=== PATIENT | female | born 1940 | race Caucasian/White ===

== ENCOUNTER 2016-11-16 21:14 | Emergency (ER) | payer MEDICARE, OTHER ==
[2016-11-16] MEDS ORDERED: NORMAL SALINE 1000 ML 1,000 ML IV ONE (21:28)
--- NOTE | 2016-11-16 21:28 | ER Document Report ---
ED Medical Screen (RME) - General Chief Complaint: High Blood Sugar Stated Complaint: HIGH BLOOD SUGAR Time seen by provider: 21:23 Mode of Arrival: Ambulatory Information source: Patient Notes: 76-year-old female presents to ED for elevated blood sugar. She states at home her blood sugar was over 600 and would only read high. She is a type II diabetic and has had 26 units of Humalog insulin since 1838. In the RME her blood sugar was 458 and 452. Yesterday her blood sugar was so low that she was disoriented. Patient states she went to Dr. Herrera's office for the last 2 hours which is where she had this 26 units of insulin. He sent her to the emergency room to monitor her blood sugar as she had such a low blood sugar yesterday. I have greeted and performed a rapid initial assessment of this patient. A comprehensive ED assessment and evaluation of the patient, analysis of test results and completion of medical decision making process will be conducted by an additional ED providers. TRAVEL OUTSIDE OF THE [place] IN LAST 30 DAYS: No Past Medical History - Past Medical History Cardiac Medical History: Reports: Hx Atrial Fibrillation Endocrine Medical History: Reports: Hx Diabetes Mellitus Type 1 Past Surgical History: Reports: Hx Hysterectomy - Immunizations Hx Diphtheria, Pertussis, Tetanus Vaccination: Yes
[2016-11-16 22:12] LABS: VENOUS BLOOD BASE EXCESS -1.7 mmol/L; VENOUS BLOOD HCO3 24.4 mmol/L (20-32); VENOUS BLOOD PCO2 47.8 mmHg (35-63); VENOUS BLOOD PH 7.33 (7.30-7.42)
[2016-11-16 22:15] LABS: ABSOLUTE LYMPHOCYTES (AUTO) 1.5 10^3/uL (0.5-4.7); ABSOLUTE MONOCYTES (AUTO) 0.4 10^3/uL (0.1-1.4); ABSOLUTE NEUT (AUTO) 6.5 10^3/uL (1.7-8.2); BASOPHILS % (AUTO) 0.3 % (0-2); EOSINOPHILS % (AUTO) 0.2 % (0-6); HEMATOCRIT 33.3 % (36.0-47.0); HEMOGLOBIN 10.9 g/dL (12.0-15.5); HGB HCT DIFFERENCE -0.6; LYMPHOCYTES % (AUTO) 17.8 % (13-45); MEAN CORPUSCULAR HEMOGLOBIN 29.7 pg (27.0-33.4); MEAN CORPUSCULAR HGB CONC 32.9 g/dL (32.0-36.0); MEAN CORPUSCULAR VOLUME 90 fl (80-97); MONOCYTES % (AUTO) 4.5 % (3-13); RED BLOOD COUNT 3.69 10^6/uL (3.72-5.28); RED CELL DISTRIBUTION WIDTH 13.4 % (11.5-14.0); SEGMENTED NEUTROPHILS % (AUTO) 77.2 % (42-78); WHITE BLOOD COUNT 8.4 10^3/uL (4.0-10.5)
[2016-11-16 22:31] LABS: ALANINE AMINOTRANSFERASE 35 U/L (9-52); ALBUMIN 4.1 g/dL (3.5-5.0); ALKALINE PHOSPHATASE 84 U/L (38-126); ANION GAP 15 (5-19); ASPARTATE AMINO TRANSFERASE 28 U/L (14-36); BILIRUBIN,TOTAL 0.5 mg/dL (0.2-1.3); BLOOD UREA NITROGEN 38 mg/dL (7-20); CALCIUM 9.5 mg/dL (8.4-10.2); CARBON DIOXIDE 24 mmol/L (22-30); CHLORIDE 96 mmol/L (98-107); CREATININE RESULT 1.55 mg/dL (0.52-1.25); GLUCOSE 334 mg/dL (75-110); POTASSIUM 4.1 mmol/L (3.6-5.0); SODIUM 134.8 mmol/L (137-145); TOTAL PROTEIN 7.9 g/dL (6.3-8.2)
[2016-11-16 23:20] LABS: APPEARANCE,URINE CLEAR; BILIRUBIN,URINE NEGATIVE (NEGATIVE); GLUCOSE, URINE >=500 mg/dL (NEGATIVE); KETONES,URINE NEGATIVE (NEGATIVE); LEUKOCYTE ESTERASE,URINE NEGATIVE (NEGATIVE); NITRITE,URINE NEGATIVE (NEGATIVE); PROTEIN,URINE NEGATIVE (NEGATIVE); UROBILINOGEN,URINE NEGATIVE mg/dL (<2.0)
--- NOTE | 2016-11-16 23:45 | ER Document Report ---
ED Blood Sugar Problem - General Chief Complaint: High Blood Sugar Stated Complaint: HIGH BLOOD SUGAR Time seen by provider: 23:41 Mode of Arrival: Ambulatory Information source: Patient, Relative TRAVEL OUTSIDE OF THE [place] IN LAST 30 DAYS: No - HPI Patient complains to provider of: elevated blood sugar Onset: This afternoon Onset/Duration: Sudden Quality of pain: No pain Associated symptoms: Increased thirst, Frequent urination Similar symptoms previously: No Recently seen / treated by doctor: Yes Notes: Patient is a 76-year-old female presenting to the emergency room from primary care provider's office for increased blood sugar, patient was seen by her primary care provider yesterday and diagnosed with an upper respiratory infection, was given a dose of steroids, today she noticed her blood sugar to be over 600, she does report some increased thirst and urination but no other symptoms, denies any nausea, vomiting or diarrhea, no fever today although she' s had a fever related to the upper respiratory infection over the past few days , no pain or burning with urination, no history of similar symptoms previously, she did take 1 dose of prednisone in the morning and one dose at 3 PM today, but was advised to discontinue prednisone use by her primary care provider, she last ate half a sandwich around 7 PM - Related Data Allergies/Adverse Reactions: baclofen Allergy (Verified 11/16/16 21:29) levofloxacin [From Levaquin] Allergy (Verified 11/16/16 21:29) Sulfa (Sulfonamide Antibiotics) Allergy (Verified 11/16/16 21:29) sulfamethoxazole [From Bactrim] Allergy (Verified 11/16/16 21:29) trimethoprim [From Bactrim] Allergy (Verified 11/16/16 21:29) Past Medical History - General Information source: Patient - Social History Smoking Status: Never Smoker Chew tobacco use (# tins/day): No Frequency of alcohol use: None Drug Abuse: None Family History: Reviewed & Not Pertinent Patient has suicidal ideation: No Patient has homicidal ideation: No - Past Medical History Cardiac Medical History: Reports: Hx Atrial Fibrillation Endocrine Medical History: Reports: Hx Diabetes Mellitus Type 1 Renal/ Medical History: Denies: Hx Peritoneal Dialysis Past Surgical History: Reports: Hx Hysterectomy - Immunizations Hx Diphtheria, Pertussis, Tetanus Vaccination: Yes Review of Systems - Review of Systems Constitutional: No symptoms reported EENT: No symptoms reported Cardiovascular: No symptoms reported Respiratory: No symptoms reported Gastrointestinal: No symptoms reported Genitourinary: Frequency Female Genitourinary: No symptoms reported Musculoskeletal: No symptoms reported Skin: No symptoms reported Hematologic/Lymphatic: No symptoms reported Neurological/Psychological: No symptoms reported -: Yes All other systems reviewed and negative Physical Exam - Vital signs Vitals: Temp Pulse Resp BP Pulse Ox 98 F 77 16 173/66 H 100 11/16/16 21:19 11/16/16 21:19 11/16/16 21:19 11/16/16 21:19 11/16/16 21:19 Interpretation: Hypertensive - General General appearance: Appears well, Alert - HEENT Head: Normocephalic, Atraumatic Eyes: Normal Pupils: PERRL - Respiratory Respiratory status: No respiratory distress Chest status: Nontender Breath sounds: Normal Chest palpation: Normal - Cardiovascular Rhythm: Regular Heart sounds: Normal auscultation Murmur: No - Abdominal Inspection: Normal Distension: No distension Bowel sounds: Normal Tenderness: Nontender Organomegaly: No organomegaly - Back Back: Normal, Nontender - Extremities General upper extremity: Normal inspection, Nontender, Normal color, Normal ROM , Normal temperature General lower extremity: Normal inspection, Nontender, Normal color, Normal ROM , Normal temperature, Normal weight bearing. No: Meet's sign - Neurological Neuro grossly intact: Yes Cognition: Normal Orientation: AAOx4 Dunlevy Coma Scale Eye Opening: Spontaneous Dunlevy Coma Scale Verbal: Oriented Gretta Coma Scale Motor: Obeys Commands Dunlevy Coma Scale Total: 15 Speech: Normal Motor strength normal: LUE, RUE, LLE, RLE Sensory: Normal - Psychological Associated symptoms: Normal affect, Normal mood - Skin Skin Temperature: Warm Skin Moisture: Dry Skin Color: Normal Course - Re-evaluation Re-evalutation: 11/17/16 01:39 Patient's blood glucose has been stable since being in the emergency room, was given a small pack of tina crackers prior to discharge to ensure that her sugar would not drop any lower throughout the middle the night, advised to discontinue taking prednisone, follow up with her primary care provider in the next 1-2 days or return if symptoms worsen, patient acknowledges understanding and agreement with this plan - Vital Signs Vital signs: Temp Pulse Resp BP Pulse Ox 98.4 F 77 13 133/55 H 97 11/17/16 01:34 11/16/16 21:19 11/17/16 01:01 11/17/16 01:00 11/17/16 01:01 - Laboratory Result Diagrams: 11/16/16 21:57 11/16/16 21:57 Laboratory results interpreted by me: 11/16/16 11/16/16 11/16/16 21:57 21:57 22:50 RBC 3.69 L Hgb 10.9 L Hct 33.3 L Sodium 134.8 L Chloride 96 L BUN 38 H Creatinine 1.55 H Est GFR ( Amer) 39 L Est GFR (Non-Af Amer) 33 L Glucose 334 H POC Glucose Urine Glucose (UA) >=500 H 11/16/16 11/17/16 11/17/16 23:29 00:29 01:21 RBC Hgb Hct Sodium Chloride BUN Creatinine Est GFR ( Amer) Est GFR (Non-Af Amer) Glucose POC Glucose 186 H 124 H 117 H Urine Glucose (UA) Discharge - Discharge Clinical Impression: Hyperglycemia Condition: Stable Disposition: HOME, SELF-CARE Instructions: Hyperglycemia ([facility]) Additional Instructions: Follow up with your primary care provider in one to 2 days. Return to the emergency room immediately if symptoms worsen or any additional concerns. Stop taking prednisone. Referrals: ORN RAMOS MD [Primary Care Provider] - Follow up as needed
[2016-11-17 01:27] VITALS: BP 133/55
== END 2016-11-17 01:43 | disposition home or self-care (01) ==
LOC: ER 21:14
DX: E10.65 Type 1 diabetes mellitus with hyperglycemia (principal); R35.0 Frequency of micturition; I48.91 Unspecified atrial fibrillation; Z90.710 Acquired absence of both cervix and uterus; Z88.2 Allergy status to sulfonamides; Z88.3 Allergy status to other anti-infective agents
CPT/HCPCS: 99283; 96360; 36415; 82962; 85025; 80053; 81001; 82803; J7030

== ENCOUNTER 2016-11-26 06:34 | Inpatient (IN) | payer MEDICARE, OTHER ==
[2016-11-26] MEDS ORDERED: ACETAMINOPHEN 325 MG TABLET PO ONE (06:39)
--- NOTE | 2016-11-26 06:52 | ER Document Report ---
ED Fall - General Mode of Arrival: Medic Information source: Patient TRAVEL OUTSIDE OF THE [place] IN LAST 30 DAYS: No - HPI Patient complains to provider of: Falling with multiple abrasions and right buttock pain Occurred: Just prior to arrival Where: Home Context: Fell from standing Associated symptoms: Other - see above Location of injury/pain: Other - see above <SYD KOVACS - Last Filed: 11/26/16 09:47> <TYRA COX - Last Filed: 11/26/16 09:51> - General Stated Complaint: FALL, RIGHT BUTTOCKS PAIN Notes: 76 year old female with history of atrial fibrillation (with pacemaker), diabetes (insulin pump in place), and left knee replacement presents to the ED via EMS after falling on her buttock and hitting her head while in the bathroom just prior to arrival. Patient states that she is having some right buttock pain , but denies any other pain. Patient complains of an abrasion to the right elbow and knee. Patient also states that she had a contusion to the posterior head which has "gone down" since arriving to the ED. Patient's primary care provider is Dr. Herrera. (SYD KOVACS) - Related data Allergies/Adverse Reactions: baclofen Allergy (Verified 11/16/16 21:29) levofloxacin [From Levaquin] Allergy (Verified 11/16/16 21:29) Sulfa (Sulfonamide Antibiotics) Allergy (Verified 11/16/16 21:29) sulfamethoxazole [From Bactrim] Allergy (Verified 11/16/16 21:29) trimethoprim [From Bactrim] Allergy (Verified 11/16/16 21:29) Past Medical History - General Information source: Patient - Social History Smoking Status: Never Smoker Family History: Reviewed & Not Pertinent - Past Medical History Cardiac Medical History: Reports: Hx Atrial Fibrillation, Hx Hypercholesterolemia Endocrine Medical History: Reports: Hx Diabetes Mellitus Type 1 Renal/ Medical History: Denies: Hx Peritoneal Dialysis Past Surgical History: Reports: Hx Hysterectomy, Hx Orthopedic Surgery - Left knee replacement - Immunizations Hx Diphtheria, Pertussis, Tetanus Vaccination: Yes <SYD KOVACS - Last Filed: 11/26/16 09:47> Review of Systems - Review of Systems Constitutional: No symptoms reported EENT: See HPI, Other - contusion to the posterior head Cardiovascular: No symptoms reported Respiratory: No symptoms reported Gastrointestinal: No symptoms reported Genitourinary: No symptoms reported Female Genitourinary: No symptoms reported Musculoskeletal: See HPI, Other - right buttock pain Skin: See HPI, Other - abrasion to the right elbow and knee Hematologic/Lymphatic: No symptoms reported Neurological/Psychological: No symptoms reported. denies: Lost consciousness -: Yes All other systems reviewed and negative <SYD KOVACS - Last Filed: 11/26/16 09:47> Physical Exam - General General appearance: Alert In distress: None - HEENT Head: Normocephalic, Atraumatic Eyes: Normal Extraocular movements intact: Yes Pupils: PERRL - Respiratory Respiratory status: No respiratory distress Breath sounds: Normal - Cardiovascular Rhythm: Regular Heart sounds: Normal auscultation - Abdominal Inspection: Normal - Back Back: Normal, Nontender - Extremities General upper extremity: Normal ROM. No: Normal inspection - see elbow and knee exam below General lower extremity: No: Normal inspection - see hip exam below Elbow: Abrasion. No: Normal Hip: Tender - right lower extremity is externally rotated with some tenderness at the right hip. No: Normal Knee: Abrasion. No: Normal - Neurological Neuro grossly intact: Yes - Psychological Associated symptoms: Normal affect, Normal mood - Skin Skin Temperature: Warm Skin Moisture: Dry Skin Color: Normal Skin irregularity: other - see extremity exam above <SYD KOVACS - Last Filed: 11/26/16 09:47> - Extremities Elbow: Other - Sonata 5 cm skin tear to the right forearm. It was approximated and bandaged by the PCT.. No: Abrasion Knee: Abrasion - There was a minor 1 cm skin tear avulsion over the right anterior lateral patellar region. <TYRA COX - Last Filed: 11/26/16 09:51> - Vital signs Vitals: Temp Pulse Resp BP Pulse Ox 97.2 F 74 17 164/78 H 100 11/26/16 06:34 11/26/16 06:34 11/26/16 06:34 11/26/16 06:34 11/26/16 06:34 (TYRA COX) Course - Laboratory Result Diagrams: 11/26/16 07:40 11/26/16 07:40 <SYD KOVACS - Last Filed: 11/26/16 09:47> - Laboratory Result Diagrams: 11/26/16 07:40 11/26/16 07:40 - Diagnostic Test Radiology reviewed: Image reviewed, Reports reviewed - CT head shows normal brain. Chest x-ray is unremarkable. Right hip shows subtrochanteric fracture with angulation and displacement. - EKG Interpretation by Me EKG shows normal: [place], Intervals, QRS Complexes, ST-T Waves Rate: Normal - 70 Rhythm: Other - Atrial paced complexes Heart block present: 1st Degree - Consults Dr. Berger Time consulted: 09:47 Consulted provider: will come to ER <TYRA COX - Last Filed: 11/26/16 09:51> - Re-evaluation Re-evalutation: 11/26/16 07:39 The patient and family request transfer to [facility] for her orthopedic surgeon and internal medicine doctors are. There are initially unwilling to turn off the insulin pump at this time. 11/26/16 09:40 The patient's orthopedic surgeon would not be available this week and the alternative he proposed the patient is unwilling to accept. The patient's family eventually agreed to stay at this facility for treatment. (TYRA COX) - Vital Signs Vital signs: Temp Pulse Resp BP Pulse Ox 97.2 F 74 18 137/57 H 99 11/26/16 06:34 11/26/16 06:34 11/26/16 09:01 11/26/16 09:01 11/26/16 09:01 (TYRA COX) - Laboratory Laboratory results interpreted by me: 11/26/16 11/26/16 11/26/16 07:40 07:40 07:50 WBC 15.5 H RBC 3.49 L Hgb 10.3 L Hct 31.1 L Seg Neutrophils % 78.6 H Absolute Neutrophils 12.2 H BUN 29 H Est GFR ( Amer) 58 L Est GFR (Non-Af Amer) 48 L Glucose 184 H Albumin 3.4 L Urine Glucose (UA) 50 H Discharge <SYD KOVACS - Last Filed: 11/26/16 09:47> - Discharge Admitting Provider: Hospitalist Unit Admitted: Medical Floor <TYRA COX - Last Filed: 11/26/16 09:51> - Discharge Clinical Impression: Diabetes mellitus, insulin dependent (IDDM), controlled Hip fracture Qualifiers: Encounter type: initial encounter Fracture type: closed Laterality: right Qualified Code(s): S72.001A - Fracture of unspecified part of neck of right femur, initial encounter for closed fracture Skin tear of right forearm without complication Qualifiers: Encounter type: initial encounter Qualified Code(s): S51.811A - Laceration without foreign body of right forearm, initial encounter Condition: Stable Disposition: ADMITTED INPATIENT Scribe Attestation: 11/26/16 09:50 I personally performed the services described in the documentation, reviewed and edited the documentation which was dictated to the scribe in my presence, and it accurately records my words and actions. (TYRA COX) Scribe Documentation - Scribe Written by Sintia:: Sintia Heard, 11/26/2016 [id number] acting as scribe for :: Kei <SYD KOVACS - Last Filed: 11/26/16 09:47>
[2016-11-26] MEDS ORDERED: NORMAL SALINE 1000 ML 1,000 ML IV ONE (07:18)
[2016-11-26 07:53] LABS: ABSOLUTE BASOPHILS # (AUTO) 0.1 10^3/uL (0.0-0.2); ABSOLUTE EOSINOPHILS # (AUTO) 0.1 10^3/uL (0.0-0.6); ABSOLUTE LYMPHOCYTES (AUTO) 2.3 10^3/uL (0.5-4.7); ABSOLUTE MONOCYTES (AUTO) 0.8 10^3/uL (0.1-1.4); ABSOLUTE NEUT (AUTO) 12.2 10^3/uL (1.7-8.2); BASOPHILS % (AUTO) 0.5 % (0-2); EOSINOPHILS % (AUTO) 0.9 % (0-6); HEMATOCRIT 31.1 % (36.0-47.0); HEMOGLOBIN 10.3 g/dL (12.0-15.5); HGB HCT DIFFERENCE -0.2; LYMPHOCYTES % (AUTO) 14.9 % (13-45); MEAN CORPUSCULAR HEMOGLOBIN 29.4 pg (27.0-33.4); MEAN CORPUSCULAR VOLUME 89 fl (80-97); MONOCYTES % (AUTO) 5.1 % (3-13); RED BLOOD COUNT 3.49 10^6/uL (3.72-5.28); RED CELL DISTRIBUTION WIDTH 13.6 % (11.5-14.0); SEGMENTED NEUTROPHILS % (AUTO) 78.6 % (42-78); WHITE BLOOD COUNT 15.5 10^3/uL (4.0-10.5)
--- NOTE | 2016-11-26 08:14 | EKG REPORT ---
SEVERITY:- ABNORMAL ECG - ATRIAL-PACED COMPLEXES FIRST DEGREE AV BLOCK : Confirmed by: Brayan Peralta MD 26-Nov-2016 08:13:41
[2016-11-26 08:16] LABS: ALANINE AMINOTRANSFERASE 23 U/L (9-52); ALBUMIN 3.4 g/dL (3.5-5.0); ALKALINE PHOSPHATASE 70 U/L (38-126); ANION GAP 10 (5-19); ASPARTATE AMINO TRANSFERASE 20 U/L (14-36); BILIRUBIN,TOTAL 0.5 mg/dL (0.2-1.3); BLOOD UREA NITROGEN 29 mg/dL (7-20); CALCIUM 9.1 mg/dL (8.4-10.2); CARBON DIOXIDE 27 mmol/L (22-30); CHLORIDE 101 mmol/L (98-107); CREATINE KINASE 69 U/L (30-135); CREATININE RESULT 1.11 mg/dL (0.52-1.25); GLUCOSE 184 mg/dL (75-110); MAGNESIUM 1.9 mg/dL (1.6-2.3); POTASSIUM 4.5 mmol/L (3.6-5.0); TOTAL PROTEIN 6.9 g/dL (6.3-8.2)
[2016-11-26 08:16] LABS: APPEARANCE,URINE CLEAR; BILIRUBIN,URINE NEGATIVE (NEGATIVE); GLUCOSE, URINE 50 mg/dL (NEGATIVE); KETONES,URINE NEGATIVE (NEGATIVE); LEUKOCYTE ESTERASE,URINE NEGATIVE (NEGATIVE); NITRITE,URINE NEGATIVE (NEGATIVE); PROTEIN,URINE NEGATIVE (NEGATIVE); URINE SPECIFIC GRAVITY 1.011; UROBILINOGEN,URINE NEGATIVE mg/dL (<2.0)
[2016-11-26 08:27] LABS: CREATINE KINASE MB 1.13 ng/mL (<4.55); TROPONIN I < 0.012 ng/mL
[2016-11-26] MEDS ORDERED: ACETAMINOPHEN 325 MG TABLET PO PRN ×2 (10:24→14:24)
[2016-11-26] MEDS ORDERED: DOCUSATE SODIUM 100 MG CAPSULE PO PRN (10:24)
[2016-11-26] MEDS ORDERED: ONDANSETRON HCL INJ/PF 4 MG/2 ML SDV IV PRN (10:24)
[2016-11-26] MEDS ORDERED: MORPHINE SULFATE 10 MG/ML INJ IV PRN (10:32)
[2016-11-26] MEDS ORDERED: NORMAL SALINE 1000 ML 1,000 ML IV PRN (10:35)
[2016-11-26] MEDS ORDERED: GLUCAGON,HUMAN RECOMB 1 MG INJ IM PRN (10:36)
[2016-11-26] MEDS ORDERED: DEXTROSE 40% GEL 15 GM TUBE PO PRN ×2 (10:36)
[2016-11-26] MEDS ORDERED: DEXTROSE 50%-WATER 25 GM/50 ML DISP.SYRIN IV PRN ×2 (10:36)
[2016-11-26] MEDS ORDERED: SOTALOL HCL 80 MG TABLET PO ONE ×2 (11:30→13:00)
[2016-11-26] MEDS: TRAMADOL HCL 50 MG TABLET PO PRN ×2 (12:30→19:04)
--- NOTE | 2016-11-26 13:05 | PDOC CONSULTATION ---
History of Present Illness Admission Date/PCP: 11/26/16 10:24 RON RAMOS Patient complains of: Right Hip History of Present Illness: 76-year-old female who is a community ambulator and lives at home independently inadvertently sustained a fall onto her right hip. Patient is on the exact mechanism of her fall but had notable deformity and increased pain with unable to weight-bear. She subsequently for herself to the phone to obtain help. She was brought by EMS to the emergency room. Patient states pain is 5/5 with motion. Denies numbness or tingling. Of note patient is status post left total knee arthroplasty in [place] July 2016. Past Medical History Cardiac Medical History: Reports: Atrial Fibrillation, Hyperlipidema Endocrine Medical History: Reports: Diabetes Mellitus Type 1 Past Surgical History Past Surgical History: Reports: Hysterectomy, Orthopedic Surgery - Left knee replacement Social History Smoking Status: Never Smoker - Advance Directive Resuscitation Status: Do Not Resuscitate Family History Family History: Reviewed & Not Pertinent Parental Family History Reviewed: No Children Family History Reviewed: No Sibling(s) Family History Reviewed.: No Medication/Allergy Allergies/Adverse Reactions: baclofen Allergy (Verified 11/16/16 21:29) levofloxacin [From Levaquin] Allergy (Verified 11/16/16 21:29) Sulfa (Sulfonamide Antibiotics) Allergy (Verified 11/16/16 21:29) sulfamethoxazole [From Bactrim] Allergy (Verified 11/16/16 21:29) trimethoprim [From Bactrim] Allergy (Verified 11/16/16 21:29) Review of Systems Review of Systems: Patient notes head trauma but denies headache dizziness or loss of consciousness. Denies diplopia or blurring of vision. Constitutional: ABSENT: chills, fever(s), headache(s), weight gain, weight loss Eyes: ABSENT: visual disturbances Ears: ABSENT: hearing changes Cardiovascular: ABSENT: chest pain, dyspnea on exertion, edema, orthropnea, palpitations Respiratory: ABSENT: cough, hemoptysis Gastrointestinal: ABSENT: abdominal pain, constipation, diarrhea, hematemesis, hematochezia, nausea, vomiting Genitourinary: ABSENT: dysuria, hematuria Musculoskeletal: PRESENT: as per HPI Integumentary: ABSENT: rash, wounds Neurological: ABSENT: abnormal gait, abnormal speech, confusion, dizziness, focal weakness, syncope Psychiatric: ABSENT: anxiety, depression, homidical ideation, suicidal ideation Endocrine: ABSENT: cold intolerance, heat intolerance, menstrual abnormalities, polydipsia, polyuria Hematologic/Lymphatic: ABSENT: easy bleeding, easy bruising, lymphadenopathy Physical Exam Vital Signs: Temp Pulse Resp BP Pulse Ox 97.9 F 70 16 122/61 100 11/26/16 12:26 11/26/16 12:26 11/26/16 12:26 11/26/16 12:26 11/26/16 12:26 General appearance: PRESENT: no acute distress, well-developed, well-nourished Head exam: PRESENT: atraumatic, normocephalic Eye exam: PRESENT: conjunctiva pink, EOMI, PERRLA. ABSENT: scleral icterus Ear exam: PRESENT: normal external ear exam Mouth exam: PRESENT: moist, tongue midline Neck exam: PRESENT: full ROM. ABSENT: carotid bruit, JVD, lymphadenopathy, thyromegaly Respiratory exam: PRESENT: unlabored Cardiovascular exam: PRESENT: RRR. ABSENT: diastolic murmur, rubs, systolic murmur Pulses: PRESENT: normal dorsalis pedis pul, +2 pedal pulses bilateral Vascular exam: PRESENT: normal capillary refill GI/Abdominal exam: PRESENT: normal bowel sounds, soft. ABSENT: distended, guarding, mass, organolmegaly, rebound, tenderness Rectal exam: PRESENT: deferred Musculoskeletal exam: PRESENT: other - Right Hip: Short, ER. No pain w/ log roll. Intact PF/DF. No sensory deficits. No calf tenderness. Small abrasion along the anterior aspect of the right knee. Skin tear of the right elbow dressed. Neurological exam: PRESENT: alert, awake, oriented to person, oriented to place , oriented to time, oriented to situation, CN II-XII grossly intact. ABSENT: motor sensory deficit Psychiatric exam: PRESENT: appropriate affect, normal mood. ABSENT: homicidal ideation, suicidal ideation Skin exam: PRESENT: dry, intact, warm. ABSENT: cyanosis, rash Results Impressions: Chest X-Ray 11/26/16 06:46 IMPRESSION: Nothing acute. Transvenous pacer noted. Head CT 11/26/16 06:46 IMPRESSION: NORMAL BRAIN CT WITHOUT CONTRAST. Hip/Pelvis X-Ray 11/26/16 06:46 IMPRESSION: Subtrochanteric fracture right hip. Assessment & Plan - Diagnosis (1) Fracture, intertrochanteric, right femur Qualifiers: Encounter type: initial encounter Fracture type: closed Qualified Code(s): S72.141A - Displaced intertrochanteric fracture of right femur, initial encounter for closed fracture Is this a current diagnosis for this admission?: YesPlan: I have reviewed patient's radiographs and findings with the family and discussed treatment options including operative versus nonoperative intervention. I have recommended proceeding with operative intervention which includes a right hip cephalo-medullary nail risks and benefits have been explained to the patient and family verbalized understanding and consented for the procedure. Risks include anesthetic complications, excessive bleeding, infection, injury to surrounding nerves, vessels and tendons, bruising, healing difficulties, scar formation, posttraumatic arthritis and any unforseen complication.
[2016-11-26] MEDS: HEPARIN SOD (PORCINE) 5,000 UNIT/ML 1 ML SYRINGE SUBCUT SCH ×2 (14:41→21:23)
[2016-11-26] MEDS: SOTALOL HCL 80 MG TABLET PO SCH (22:14)
--- NOTE | 2016-11-27 04:31 | PDOC H&P ---
History of Present Illness Admission Date/PCP: RON RAMOS History of Present Illness: TY JAMIL is a 76 year old female history of atrial fibrillation with pacemaker, diabetes insulin pump in place, and left knee replacement presents to the ED via EMS after trip and falling with subsequent hip fracture. Patient denied any antecedent illness, loss of consciousness, loss of bowel or bladder function, palpitations, chest pain. Patient had been diagnosed recently with pneumonia and was on doxycycline and Keflex, but repeat chest x-ray in the emergency department does not reveal this. Patient does complain of some right hip pain. Past Medical History Past Medical History: A. fib, [place] in October 2013, pacemaker, insulin-dependent diabetes mellitus, hyperlipidemia Cardiac Medical History: Reports: Atrial Fibrillation, Hyperlipidema Endocrine Medical History: Reports: Diabetes Mellitus Type 1 Past Surgical History Past Surgical History: Reports: Hysterectomy, Orthopedic Surgery - Left knee replacement Social History Smoking Status: Never Smoker Frequency of Alcohol Use: None Hx Recreational Drug Use: No Hx Prescription Drug Abuse: No - Advance Directive Resuscitation Status: Do Not Resuscitate Surrogate healthcare decision maker:: Daughter Family History Family History: DM Parental Family History Reviewed: Yes Children Family History Reviewed: Yes Sibling(s) Family History Reviewed.: Yes Medication/Allergy Home Medications: Atorvastatin Calcium [Lipitor 10 mg Tablet] 10 mg PO QHS 11/26/16 Cephalexin [Cephalexin 250 MG Tablet] 250 mg PO TID 11/26/16 Doxycycline Hyclate [Vibramycin 100 mg Tablet] 100 mg PO BID 11/26/16 Escitalopram Oxalate [Lexapro] 5 mg PO DAILY 11/26/16 Sotalol HCl [Sotalol] 40 mg PO Q12 11/26/16 Allergies/Adverse Reactions: baclofen Allergy (Verified 11/16/16 21:29) levofloxacin [From Levaquin] Allergy (Verified 11/16/16 21:29) Sulfa (Sulfonamide Antibiotics) Allergy (Verified 11/16/16 21:29) sulfamethoxazole [From Bactrim] Allergy (Verified 11/16/16 21:29) trimethoprim [From Bactrim] Allergy (Verified 11/16/16 21:29) Review of Systems Constitutional: PRESENT: as per HPI. ABSENT: chills, fever(s), headache(s), weight gain, weight loss Eyes: ABSENT: visual disturbances Ears: ABSENT: hearing changes Cardiovascular: ABSENT: chest pain, dyspnea on exertion, edema, orthropnea, palpitations Respiratory: ABSENT: cough, hemoptysis Gastrointestinal: ABSENT: abdominal pain, constipation, diarrhea, hematemesis, hematochezia, nausea, vomiting Genitourinary: ABSENT: dysuria, hematuria Musculoskeletal: PRESENT: as per HPI, other - Right hip pain Integumentary: ABSENT: rash, wounds Neurological: ABSENT: abnormal gait, abnormal speech, confusion, dizziness, focal weakness, syncope Psychiatric: ABSENT: anxiety, depression, homidical ideation, suicidal ideation Endocrine: ABSENT: cold intolerance, heat intolerance, polydipsia, polyuria Hematologic/Lymphatic: ABSENT: easy bleeding, easy bruising Physical Exam Vital Signs: Temp Pulse Resp BP Pulse Ox 97.2 F 74 18 137/57 H 99 11/26/16 06:34 11/26/16 06:34 11/26/16 09:01 11/26/16 09:01 11/26/16 09:01 Intake & Output 11/25/16 11/26/16 11/27/16 06:59 06:59 06:59 Weight 53.524 kg General appearance: PRESENT: no acute distress, well-developed, well-nourished Head exam: PRESENT: atraumatic, normocephalic Eye exam: PRESENT: conjunctiva pink, EOMI, PERRLA. ABSENT: scleral icterus Ear exam: PRESENT: normal external ear exam Mouth exam: PRESENT: moist, tongue midline Neck exam: PRESENT: full ROM. ABSENT: JVD, lymphadenopathy, thyromegaly, tracheal deviation Respiratory exam: PRESENT: clear to auscultation magnus. ABSENT: rales, rhonchi, wheezes Cardiovascular exam: PRESENT: RRR, +S1, +S2. ABSENT: diastolic murmur, rubs, systolic murmur Pulses: PRESENT: normal dorsalis pedis pul Vascular exam: PRESENT: normal capillary refill GI/Abdominal exam: PRESENT: normal bowel sounds, soft. ABSENT: distended, guarding, mass, organolmegaly, rebound, tenderness Rectal exam: PRESENT: deferred Extremities exam: ABSENT: calf tenderness, clubbing, pedal edema Musculoskeletal exam: PRESENT: other - Right foot externally rotated and shortened Neurological exam: PRESENT: alert, awake, oriented to person, oriented to place , oriented to time, oriented to situation, CN II-XII grossly intact. ABSENT: motor sensory deficit Psychiatric exam: PRESENT: appropriate affect, normal mood. ABSENT: homicidal ideation, suicidal ideation Skin exam: PRESENT: dry, intact, warm. ABSENT: cyanosis, rash Results Laboratory Results: 11/26/16 07:40 11/26/16 07:40 11/26/16 11/26/16 11/26/16 07:40 07:40 07:50 WBC 15.5 H RBC 3.49 L Hgb 10.3 L Hct 31.1 L MCV 89 MCH 29.4 MCHC 33.0 RDW 13.6 Plt Count 221 Seg Neutrophils % 78.6 H Lymphocytes % 14.9 Monocytes % 5.1 Eosinophils % 0.9 Basophils % 0.5 Absolute Neutrophils 12.2 H Absolute Lymphocytes 2.3 Absolute Monocytes 0.8 Absolute Eosinophils 0.1 Absolute Basophils 0.1 Sodium 138.0 Potassium 4.5 Chloride 101 Carbon Dioxide 27 Anion Gap 10 BUN 29 H Creatinine 1.11 Est GFR ( Amer) 58 L Est GFR (Non-Af Amer) 48 L Glucose 184 H Calcium 9.1 Magnesium 1.9 Total Bilirubin 0.5 AST 20 ALT 23 Alkaline Phosphatase 70 Total Protein 6.9 Albumin 3.4 L Urine Color STRAW Urine Appearance CLEAR Urine pH 5.0 Ur Specific [place] 1.011 Urine Protein NEGATIVE Urine Glucose (UA) 50 H Urine Ketones NEGATIVE Urine Blood NEGATIVE Urine Nitrite NEGATIVE Ur Leukocyte Esterase NEGATIVE Urine WBC (Auto) 1 Urine RBC (Auto) 0 11/26/16 11/26/16 07:40 07:40 Creatine Kinase 69 CK-MB (CK-2) 1.13 Troponin I < 0.012 Impressions: Chest X-Ray 11/26/16 06:46 IMPRESSION: Nothing acute. Transvenous pacer noted. Head CT 11/26/16 06:46 IMPRESSION: NORMAL BRAIN CT WITHOUT CONTRAST. Hip/Pelvis X-Ray 11/26/16 06:46 IMPRESSION: Subtrochanteric fracture right hip. Assessment & Plan - Diagnosis (1) CAD (coronary artery disease) Qualifiers: Coronary Disease-Associated Artery/Lesion type: [place] artery [place] vs. transplanted heart: [place] heart Associated angina: without angina Qualified Code(s): I25.10 - Atherosclerotic heart disease of [place] coronary artery without angina pectoris Is this a current diagnosis for this admission?: YesPlan: Patient reports having had a stress test in the last 6 months for her recent knee replacement. 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 Will request records from [place]. Continue patient on her home medications (2) A-fib Qualifiers: Atrial fibrillation type: paroxysmal Qualified Code(s): I48.0 - Paroxysmal atrial fibrillation Is this a current diagnosis for this admission?: YesPlan: Patient reports no further A. fib since receiving her pacemaker. Patient is also currently on sotalol. Patient is not on any anticoagulation. We'll request outside cardiology records (3) Diabetes mellitus, insulin dependent (IDDM), controlled Is this a current diagnosis for this admission?: YesPlan: Patient currently has insulin pump. Will permit her to use this while she is taking in oral. Patient will need to stop this after midnight tonight. Continue with Accu-Cheks. Patient may bolus herself. Check outside records for hemoglobin A1c. If non-will order (4) Fracture, intertrochanteric, right femur Qualifiers: Encounter type: initial encounter Fracture type: closed Qualified Code(s): S72.141A - Displaced intertrochanteric fracture of right femur, initial encounter for closed fracture Is this a current diagnosis for this admission?: YesPlan: Have consulted orthopedics with plan for surgery on 11/27/16. Patient low to moderate risk for perioperative event - Time Time Spent: 50 to 70 Minutes Medications reviewed and adjusted accordingly: Yes Anticipated discharge: Acute Rehab
[2016-11-27] MEDS: HEPARIN SOD (PORCINE) 5,000 UNIT/ML 1 ML SYRINGE SUBCUT SCH ×2 (06:05→18:35)
[2016-11-27 06:06] LABS: PROTHROMBIN TIME 14.2 SEC (11.4-15.4)
[2016-11-27 06:07] LABS: PARTIAL THROMBOPLASTIN TIME 34.7 SEC (23.5-35.8)
[2016-11-27 06:20] LABS: ANION GAP 6 (5-19); BLOOD UREA NITROGEN 25 mg/dL (7-20); CARBON DIOXIDE 26 mmol/L (22-30); CHLORIDE 105 mmol/L (98-107); CREATININE RESULT 1.01 mg/dL (0.52-1.25); GLUCOSE 216 mg/dL (75-110); POTASSIUM 4.2 mmol/L (3.6-5.0); SODIUM 137.4 mmol/L (137-145)
[2016-11-27 06:22] LABS: ABSOLUTE EOSINOPHILS # (AUTO) 0.1 10^3/uL (0.0-0.6); ABSOLUTE LYMPHOCYTES (AUTO) 2.4 10^3/uL (0.5-4.7); ABSOLUTE MONOCYTES (AUTO) 0.7 10^3/uL (0.1-1.4); ABSOLUTE NEUT (AUTO) 4.2 10^3/uL (1.7-8.2); BASOPHILS % (AUTO) 0.4 % (0-2); EOSINOPHILS % (AUTO) 1.1 % (0-6); HGB HCT DIFFERENCE -0.3; LYMPHOCYTES % (AUTO) 31.9 % (13-45); MEAN CORPUSCULAR HEMOGLOBIN 29.3 pg (27.0-33.4); MEAN CORPUSCULAR HGB CONC 32.9 g/dL (32.0-36.0); MEAN CORPUSCULAR VOLUME 89 fl (80-97); MONOCYTES % (AUTO) 9.8 % (3-13); RED BLOOD COUNT 2.69 10^6/uL (3.72-5.28); RED CELL DISTRIBUTION WIDTH 13.9 % (11.5-14.0); SEGMENTED NEUTROPHILS % (AUTO) 56.8 % (42-78); WHITE BLOOD COUNT 7.5 10^3/uL (4.0-10.5)
[2016-11-27 06:45] LABS: HEMOGLOBIN 7.9 g/dL (12.0-15.5)
[2016-11-27] MEDS ORDERED: NORMAL SALINE 250 ML IV PRN ×2 (07:57)
[2016-11-27] MEDS ORDERED: INSULIN LISPRO 100 UNIT/ML 3 ML VIAL SUBCUT PRN (08:48)
[2016-11-27] MEDS ORDERED: DIPHENHYDRAMINE HCL 50 MG/ML VIAL IV PRN (09:29)
[2016-11-27] MEDS ORDERED: DIPHENHYDRAMINE HCL 50 MG/ML VIAL ONE (09:49)
[2016-11-27] MEDS ORDERED: (PENDING PHARMACY ID) (Escitalopram Oxalate [Lexapro] 5 MG) PO SCH (10:00)
[2016-11-27] MEDS: SOTALOL HCL 80 MG TABLET PO SCH ×2 (10:55→21:28)
[2016-11-27] MEDS: TRAMADOL HCL 50 MG TABLET PO PRN (10:55)
[2016-11-27] MEDS ORDERED: CEFAZOLIN INJ 1 GM VIAL ONE (16:44)
[2016-11-27] MEDS ORDERED: HYDROMORPHONE HCL INJ/PF 2 MG/ML AMPULE ONE (16:44)
[2016-11-27] MEDS ORDERED: PROPOFOL INJ 200 MG/20 ML VIAL IV ONE (16:45)
[2016-11-27] MEDS ORDERED: ONDANSETRON HCL INJ/PF 4 MG/2 ML SDV ONE (16:45)
[2016-11-27] MEDS ORDERED: EPHEDRINE SULFATE INJ 50 MG/1 ML AMPULE ONE (16:45)
--- NOTE | 2016-11-27 18:23 | PDOC PROGRESS REPORT ---
Subjective Progress Note for:: 11/27/16 Subjective:: Patient's pain is generally well controlled. I have answered numerous questions for patient and daughter present at the bedside. Patient denies fever , chills, headache, new focal weakness, chest pain, shortness of breath, abdominal pain, nausea, vomiting, diarrhea, constipation. Physical Exam Vital Signs: Temp Pulse Resp BP Pulse Ox 98.6 F 70 16 150/65 H 100 11/27/16 16:22 11/27/16 16:22 11/27/16 16:22 11/27/16 16:22 11/27/16 16:22 Intake & Output 11/26/16 11/27/16 11/28/16 06:59 06:59 06:59 Intake Total 2025 0 Output Total 1100 350 Balance 925 -350 Weight 60.5 kg GENERAL: No acute distress HEENT: Conjunctiva clear, nonicteric, moist mucous membranes, no JVD, midline trachea RESPIRATORY: Clear to auscultation bilaterally, no wheezes, no rhonchi CARDIAC: Regular rate and rhythm, no murmurs/gallops/rubs ABDOMEN: Soft, nondistended, nontender, positive bowel sounds, no rebound, no guarding EXTREMETIES: No edema, cyanosis, clubbing. Pain with range of motion right lower extremity NEUROLOGIC: Alert, oriented to person/place/time, CN's grossly intact, no focal deficits SKIN: No rash, wounds PSYCH: Normal mood, normal affect Results Laboratory Results: 11/27/16 05:27 11/27/16 05:27 11/27/16 11/27/16 11/27/16 05:27 05:27 09:10 WBC 7.5 RBC 2.69 L Hgb 7.9 L D Hct 24.0 L MCV 89 MCH 29.3 MCHC 32.9 RDW 13.9 Plt Count 161 Seg Neutrophils % 56.8 Lymphocytes % 31.9 Monocytes % 9.8 Eosinophils % 1.1 Basophils % 0.4 Absolute Neutrophils 4.2 Absolute Lymphocytes 2.4 Absolute Monocytes 0.7 Absolute Eosinophils 0.1 Absolute Basophils 0.0 Sodium 137.4 Potassium 4.2 Chloride 105 Carbon Dioxide 26 Anion Gap 6 BUN 25 H Creatinine 1.01 Est GFR ( Amer) > 60 Est GFR (Non-Af Amer) 53 L Glucose 216 H Calcium 8.0 L Blood Type A POSITIVE Antibody Screen NEGATIVE Impressions: Chest X-Ray 11/26/16 06:46 IMPRESSION: Nothing acute. Transvenous pacer noted. Head CT 11/26/16 06:46 IMPRESSION: NORMAL BRAIN CT WITHOUT CONTRAST. Hip/Pelvis X-Ray 11/26/16 06:46 IMPRESSION: Subtrochanteric fracture right hip. Assessment & Plan - Diagnosis (1) Fracture, intertrochanteric, right femur Qualifiers: Encounter type: initial encounter Fracture type: closed Qualified Code(s): S72.141A - Displaced intertrochanteric fracture of right femur, initial encounter for closed fracture Is this a current diagnosis for this admission?: YesPlan: Dr. Marroquin of orthopedics consulted. ORIF planned. (2) Acute blood loss anemia Is this a current diagnosis for this admission?: YesPlan: Transfuse 2 units PRBC. Likely secondary to internal bleeding from hip fracture. (3) A-fib Qualifiers: Atrial fibrillation type: paroxysmal Qualified Code(s): I48.0 - Paroxysmal atrial fibrillation Is this a current diagnosis for this admission?: YesPlan: Continue telemetry monitoring. Continue sotalol. Patient is status post pacemaker. (4) CAD (coronary artery disease) Qualifiers: Coronary Disease-Associated Artery/Lesion type: [place] artery [place] vs. transplanted heart: [place] heart Associated angina: without angina Qualified Code(s): I25.10 - Atherosclerotic heart disease of [place] coronary artery without angina pectoris Is this a current diagnosis for this admission?: YesPlan: Continue Lipitor. Patient does not normally take antiplatelet regimen according to her and her daughter. (5) Diabetes mellitus, insulin dependent (IDDM), controlled Is this a current diagnosis for this admission?: YesPlan: Insulin pump is on hold while nothing by mouth for surgery. Continue sliding scale insulin coverage. Resume insulin pump postoperatively. - Time Time Spent with patient: 35 or more minutes Anticipated discharge: Acute Rehab Within: within 72 hours
[2016-11-27] MEDS: PROMETHAZINE HCL INJ 25 MG/1 ML VIAL IV PRN ×2 (18:35→18:36)
[2016-11-27] MEDS: FENTANYL CITRATE INJ/PF 100 MCG/2 ML AMPUL IV PRN ×6 (18:35→18:36)
[2016-11-27] MEDS ORDERED: RINGERS SOLUTION,LACTATED 1,000 ML IV PRN (18:51)
--- NOTE | 2016-11-27 18:51 | Operative Report ---
Operative Report DATE OF SURGERY: 11/27/16 PREOPERATIVE DIAGNOSIS: Right Peritrochanteric Proximal Femur Fracture POSTOPERATIVE DIAGNOSIS: Same OPERATION: Long Cephalomedullary Nail Right Peritrochanteric Proximal Femur Fracture SURGEON: BIMAL MUHAMMAD ANESTHESIA: GA COMPLICATIONS: None ESTIMATED BLOOD LOSS: 75cc PROCEDURE: Indication for above procedure: 76-year-old community ambulating female sustained a inadvertently fall onto her right hip. She subsequently was brought to the emergency room where x-rays demonstrated a proximal femur fracture. Patient was admitted under the hospitalist service and was found the medically optimized for operative intervention. I discussed surgical treatment with the patient including operative versus nonoperative intervention risk and benefits were explained to the patient and family they verbalized understanding consented for the procedure. Patient was seen and evaluated in the preoperative holding area. The right lower extremity was initialized and marked. Patient received 2 g Ancef IV for bacterial prophylaxis. Patient was taken back to the operative room where transferred operative table. Patient was placed under spinal anesthesia. Once adequate anesthetized he was carefully placed onto the hip positioner the nonoperative lower extremity and bilateral upper extremities were carefully padded and the peroneal nerve was padded and on the nonoperative extremity. The operative extremity was placed in a traction along with adduction and internal rotation. A surgical team debriefing was performed ensuring all instrumentation was available, the surgical procedure was discussed with possible concerns reviewed. A timeout was done identifying correct patient, procedure and extremity everyone in attendance agree with this and verbalized no concerns. Reduction maneuver with the use of the hip traction table were done and C-arm fluoroscopy was used to confirm optimal reduction of the intertrochanteric fracture. Once this was confirmed the lower extremity was prepped with chlor prep and draped in a sterile fashion. At this point a small skin incision was made proximal to the greater trochanter. The guidewire was placed onto the tip of the trochanter advanced down to the level of the lesser trochanter. AP and lateral fluoroscopy was used to confirm appropriate placement of the guidewire. The skin incision was then extended and the underlying fascia opened up carefully to the tip of the greater trochanter. The entry reamer was then used and advanced to the level of the lesser trochanter. At this point I began reaming starting with a 9 mm reamer up to a 12 mm reamer. I measured the appropriate length of the long gamma nail to be 360 mm. The nail was then advanced down the shaft of the femur. AP and lateral fluoroscopy was then used to confirm appropriate placement of the nail and length. I then turned my attention to the compression screw fixation in the femoral head. The trochars were advanced to the skin, a skin incision was made, careful dissection down to the fascia to the lateral femoral cortex was then partaken. The guidewire was then used and placed in the near central position cheating and a posterior/inferior direction on lateral and AP respectively. I also advanced the guide tip to achieve a tip apex distance less than 25 mm. Once this position was obtained the size of the compression screw was measured. AP and lateral fluoroscopy used to confirm appropriate placement of our guide wire. The step reamer was used to drill up through the femoral neck and head. I then carefully advanced the compression screw into position. AP and lateral fluoroscopy was done to confirm appropriate placement of the compression screw this was then locked into position proximally. The compression screw was then disengaged from its mounting device and the guidewire was removed. Lastly proceeded with locking of the nail distally. Perfect circles were obtained with C-arm fluoroscopy. A small stab incision was then made through the skin with blunt dissection down to the lateral cortex of the femur. The near and far cortices were then drilled and double checked on C-arm to ensure appropriate trajectory through the nail. First a static screw was placed within the oblong hole. This was confirmed with C-arm fluoroscopy. I then placed a second distal locking screw through static via the same approach as noted above. The wounds were then copiously irrigated with normal saline. The deep tissues were closed with 0 Vicryl suture, subcutaneous tissues were closed with 3-0 Monocryl suture. The skin was closed a running 3-0 subcuticular Monocryl suture and reinforced with Dermabond & Steri-Strips. A dressing was placed. Sponge counts, instrument counts and needle counts were correct. Patient was then transferred from the operating room table to the operating room stretcher. The was no intraoperative complications patient tolerated procedure well was stable to PACU. Implants used: Trey 11 x 360mm 125 Short Gamma Nail with a 85 mm compression screw Postoperative plan: Patient will begin physical therapy on postop day #1 weightbearing as tolerated. DVT prophylaxis with Xarelto daily.
[2016-11-27] MEDS: CEFAZOLIN 2 GM/D5W RTU 2 GM/50 ML RTUPB IV SCH (21:29)
[2016-11-27] MEDS: ATORVASTATIN CALCIUM 10 MG TABLET PO SCH (21:29)
[2016-11-27] MEDS ORDERED: RIVAROXABAN 10 MG TABLET PO SCH (22:00)
[2016-11-28] MEDS ORDERED: CEFAZOLIN 2 GM/D5W RTU 50 ML IV SCH
[2016-11-28 05:32] LABS: ABSOLUTE EOSINOPHILS # (AUTO) 0.1 10^3/uL (0.0-0.6); ABSOLUTE LYMPHOCYTES (AUTO) 1.7 10^3/uL (0.5-4.7); ABSOLUTE MONOCYTES (AUTO) 1.1 10^3/uL (0.1-1.4); ABSOLUTE NEUT (AUTO) 9.1 10^3/uL (1.7-8.2); BASOPHILS % (AUTO) 0.2 % (0-2); EOSINOPHILS % (AUTO) 0.4 % (0-6); HEMATOCRIT 30.9 % (36.0-47.0); MEAN CORPUSCULAR HEMOGLOBIN 29.6 pg (27.0-33.4); MEAN CORPUSCULAR HGB CONC 33.3 g/dL (32.0-36.0); MEAN CORPUSCULAR VOLUME 89 fl (80-97); MONOCYTES % (AUTO) 9.3 % (3-13); RED BLOOD COUNT 3.46 10^6/uL (3.72-5.28); RED CELL DISTRIBUTION WIDTH 14.1 % (11.5-14.0); SEGMENTED NEUTROPHILS % (AUTO) 76.1 % (42-78)
[2016-11-28 05:49] LABS: HEMOGLOBIN 10.3 g/dL (12.0-15.5)
[2016-11-28 05:55] LABS: ANION GAP 7 (5-19); BLOOD UREA NITROGEN 28 mg/dL (7-20); CARBON DIOXIDE 25 mmol/L (22-30); CHLORIDE 105 mmol/L (98-107); CREATININE RESULT 1.04 mg/dL (0.52-1.25); GLUCOSE 207 mg/dL (75-110); POTASSIUM 4.4 mmol/L (3.6-5.0); SODIUM 136.6 mmol/L (137-145)
[2016-11-28] MEDS: CEFAZOLIN 2 GM/D5W RTU 2 GM/50 ML RTUPB IV SCH ×3 (07:01→21:49)
--- NOTE | 2016-11-28 07:32 | PDOC PROGRESS REPORT ---
Subjective Progress Note for:: 11/28/16 Subjective:: Patient denies any discomfort Physical Exam Vital Signs: Temp Pulse Resp BP Pulse Ox 36.9 C 68 18 117/46 L 96 11/28/16 00:43 11/28/16 00:43 11/28/16 00:43 11/28/16 00:43 11/28/16 00:43 Intake & Output 11/27/16 11/28/16 11/29/16 06:59 06:59 06:59 Intake Total 2025 4250 Output Total 1100 525 Balance 925 3725 Weight 60.5 kg General appearance: PRESENT: no acute distress Head exam: PRESENT: normocephalic Eye exam: PRESENT: EOMI Respiratory exam: PRESENT: unlabored Pulses: PRESENT: +1 pedal pulses bilateral Vascular exam: PRESENT: normal capillary refill GI/Abdominal exam: PRESENT: soft Rectal exam: PRESENT: deferred Extremities exam: PRESENT: other - 3 right lower extremity dressings are clean dry and intact. There is multiple ecchymosis over the lower extremity. Distal neurovascular examinations intact. Neurological exam: PRESENT: alert, awake, oriented to person, oriented to place , oriented to time, oriented to situation. ABSENT: motor sensory deficit Psychiatric exam: PRESENT: appropriate affect, normal mood. ABSENT: homicidal ideation, suicidal ideation Results Laboratory Results: 11/28/16 04:31 11/28/16 04:31 11/27/16 11/28/16 11/28/16 09:10 04:31 04:31 WBC 12.0 H RBC 3.46 L Hgb 10.3 L D Hct 30.9 L MCV 89 MCH 29.6 MCHC 33.3 RDW 14.1 H Plt Count 141 L Seg Neutrophils % 76.1 Lymphocytes % 14.0 Monocytes % 9.3 Eosinophils % 0.4 Basophils % 0.2 Absolute Neutrophils 9.1 H Absolute Lymphocytes 1.7 Absolute Monocytes 1.1 Absolute Eosinophils 0.1 Absolute Basophils 0.0 Sodium 136.6 L Potassium 4.4 Chloride 105 Carbon Dioxide 25 Anion Gap 7 BUN 28 H Creatinine 1.04 Est GFR ( Amer) > 60 Est GFR (Non-Af Amer) 52 L Glucose 207 H Calcium 8.0 L Blood Type A POSITIVE Antibody Screen NEGATIVE Impressions: Chest X-Ray 11/26/16 06:46 IMPRESSION: Nothing acute. Transvenous pacer noted. Head CT 11/26/16 06:46 IMPRESSION: NORMAL BRAIN CT WITHOUT CONTRAST. Fluoroscopy 11/27/16 00:00 IMPRESSION: IMAGE(S) OBTAINED DURING PROCEDURE. Hip/Pelvis X-Ray 11/27/16 00:00 IMPRESSION: IMAGE(S) OBTAINED DURING PROCEDURE. Status: Imported from PACS Assessment & Plan - Diagnosis (1) Subtrochanteric fracture of right femur Qualifiers: Encounter type: subsequent encounter Fracture type: closed Fracture healing: with routine healing Qualified Code(s): S72.21XD - Displaced subtrochanteric fracture of right femur, subsequent encounter for closed fracture with routine healing Is this a current diagnosis for this admission?: YesPlan: 76-year-old white female status post open reduction internal fixation of a right subtrochanteric femur fracture with an uneventful postoperative course. Postop labs are pending. Patient will be started with physical therapy and weightbearing as tolerated ambulatory program. - Time Time Spent with patient: 15-24 minutes Critical Time spent with patient: 15-24 minutes Anticipated discharge: SNF Within: within 48 hours
[2016-11-28] MEDS: ESCITALOPRAM OXALATE 10 MG TABLET PO SCH (09:29)
[2016-11-28] MEDS: TRAMADOL HCL 50 MG TABLET PO PRN ×2 (09:29→21:25)
[2016-11-28] MEDS: HEPARIN SOD (PORCINE) 5,000 UNIT/ML 1 ML SYRINGE SUBCUT SCH ×2 (14:29→21:24)
[2016-11-28] MEDS: SOTALOL HCL 80 MG TABLET PO SCH ×2 (15:45→21:12)
--- NOTE | 2016-11-28 16:00 | PDOC PROGRESS REPORT ---
Subjective Progress Note for:: 11/28/16 Subjective:: Patient is postoperative day #1 status post ORIF of right hip. Pain is controlled. She was able to get up with physical therapy today. Patient denies fever, chills, headache, new focal weakness, chest pain, shortness of breath, abdominal pain, nausea, vomiting, diarrhea, constipation. Physical Exam Vital Signs: Temp Pulse Resp BP Pulse Ox 98.3 F 69 16 101/47 L 97 11/28/16 07:54 11/28/16 07:54 11/28/16 07:54 11/28/16 07:54 11/28/16 07:54 Intake & Output 11/27/16 11/28/16 11/29/16 06:59 06:59 06:59 Intake Total 2025 5000 Output Total 1100 525 Balance 925 4475 Weight 60.5 kg GENERAL: No acute distress HEENT: Conjunctiva clear, nonicteric, moist mucous membranes, no JVD, midline trachea RESPIRATORY: Clear to auscultation bilaterally, no wheezes, no rhonchi CARDIAC: Regular rate and rhythm, no murmurs/gallops/rubs ABDOMEN: Soft, nondistended, nontender, positive bowel sounds, no rebound, no guarding EXTREMETIES: No edema, cyanosis, clubbing NEUROLOGIC: Alert, oriented to person/place/time, CN's grossly intact, no focal deficits SKIN: Incisions without signs of infection. Patient has skin tears noted to her right wrist, right elbow, right leg. PSYCH: Normal mood, normal affect Results Laboratory Results: 11/28/16 04:31 11/28/16 04:31 11/27/16 11/28/16 11/28/16 09:10 04:31 04:31 WBC 12.0 H RBC 3.46 L Hgb 10.3 L D Hct 30.9 L MCV 89 MCH 29.6 MCHC 33.3 RDW 14.1 H Plt Count 141 L Seg Neutrophils % 76.1 Lymphocytes % 14.0 Monocytes % 9.3 Eosinophils % 0.4 Basophils % 0.2 Absolute Neutrophils 9.1 H Absolute Lymphocytes 1.7 Absolute Monocytes 1.1 Absolute Eosinophils 0.1 Absolute Basophils 0.0 Sodium 136.6 L Potassium 4.4 Chloride 105 Carbon Dioxide 25 Anion Gap 7 BUN 28 H Creatinine 1.04 Est GFR ( Amer) > 60 Est GFR (Non-Af Amer) 52 L Glucose 207 H Calcium 8.0 L Blood Type A POSITIVE Antibody Screen NEGATIVE Impressions: Chest X-Ray 11/26/16 06:46 IMPRESSION: Nothing acute. Transvenous pacer noted. Head CT 11/26/16 06:46 IMPRESSION: NORMAL BRAIN CT WITHOUT CONTRAST. Fluoroscopy 11/27/16 00:00 IMPRESSION: IMAGE(S) OBTAINED DURING PROCEDURE. Hip/Pelvis X-Ray 11/27/16 00:00 IMPRESSION: IMAGE(S) OBTAINED DURING PROCEDURE. Assessment & Plan - Diagnosis (1) Fracture, intertrochanteric, right femur Qualifiers: Encounter type: initial encounter Fracture type: closed Qualified Code(s): S72.141A - Displaced intertrochanteric fracture of right femur, initial encounter for closed fracture Is this a current diagnosis for this admission?: YesPlan: Status post ORIF on 11/27/2016. Weightbearing as tolerated. Continue physical therapy. (2) Acute blood loss anemia Is this a current diagnosis for this admission?: YesPlan: Transfused 2 units PRBC on 11/27/2016. Likely secondary to internal bleeding from hip fracture. (3) A-fib Qualifiers: Atrial fibrillation type: paroxysmal Qualified Code(s): I48.0 - Paroxysmal atrial fibrillation Is this a current diagnosis for this admission?: YesPlan: Continue telemetry monitoring. Continue sotalol. Patient is status post pacemaker. (4) CAD (coronary artery disease) Qualifiers: Coronary Disease-Associated Artery/Lesion type: [place] artery [place] vs. transplanted heart: [place] heart Associated angina: without angina Qualified Code(s): I25.10 - Atherosclerotic heart disease of [place] coronary artery without angina pectoris Is this a current diagnosis for this admission?: YesPlan: Continue Lipitor. Patient does not normally take antiplatelet regimen according to her and her daughter. (5) Diabetes mellitus, insulin dependent (IDDM), controlled Is this a current diagnosis for this admission?: YesPlan: Resume insulin pump. (6) Skin tear of right forearm without complication Qualifiers: Encounter type: initial encounter Qualified Code(s): S51.811A - Laceration without foreign body of right forearm, initial encounter Is this a current diagnosis for this admission?: YesPlan: Xeroform dressing changes daily. - Time Time Spent with patient: 35 or more minutes
[2016-11-28] MEDS: ATORVASTATIN CALCIUM 10 MG TABLET PO SCH (21:25)
[2016-11-29 05:06] LABS: ABSOLUTE EOSINOPHILS # (AUTO) 0.1 10^3/uL (0.0-0.6); ABSOLUTE LYMPHOCYTES (AUTO) 1.7 10^3/uL (0.5-4.7); ABSOLUTE MONOCYTES (AUTO) 0.9 10^3/uL (0.1-1.4); ABSOLUTE NEUT (AUTO) 8.3 10^3/uL (1.7-8.2); BASOPHILS % (AUTO) 0.2 % (0-2); EOSINOPHILS % (AUTO) 0.9 % (0-6); HEMATOCRIT 24.8 % (36.0-47.0); HEMOGLOBIN 8.6 g/dL (12.0-15.5); LYMPHOCYTES % (AUTO) 15.5 % (13-45); MEAN CORPUSCULAR HEMOGLOBIN 30.3 pg (27.0-33.4); MEAN CORPUSCULAR HGB CONC 34.7 g/dL (32.0-36.0); MEAN CORPUSCULAR VOLUME 87 fl (80-97); MONOCYTES % (AUTO) 8.4 % (3-13); RED BLOOD COUNT 2.84 10^6/uL (3.72-5.28); RED CELL DISTRIBUTION WIDTH 13.9 % (11.5-14.0)
[2016-11-29 05:30] LABS: ANION GAP 5 (5-19); BLOOD UREA NITROGEN 27 mg/dL (7-20); CALCIUM 7.9 mg/dL (8.4-10.2); CARBON DIOXIDE 26 mmol/L (22-30); CHLORIDE 101 mmol/L (98-107); CREATININE RESULT 1.03 mg/dL (0.52-1.25); GLUCOSE 228 mg/dL (75-110); POTASSIUM 4.2 mmol/L (3.6-5.0)
[2016-11-29] MEDS: CEFAZOLIN 2 GM/D5W RTU 2 GM/50 ML RTUPB IV SCH ×3 (06:47→21:23)
[2016-11-29] MEDS: HEPARIN SOD (PORCINE) 5,000 UNIT/ML 1 ML SYRINGE SUBCUT SCH (06:57)
[2016-11-29] MEDS: ESCITALOPRAM OXALATE 10 MG TABLET PO SCH (09:14)
[2016-11-29] MEDS: FERROUS SULFATE 325 MG TABLET PO SCH ×2 (09:14→17:10)
[2016-11-29] MEDS: DOCUSATE SODIUM 100 MG CAPSULE PO SCH ×2 (09:15→17:10)
[2016-11-29] MEDS: SOTALOL HCL 80 MG TABLET PO SCH ×2 (09:15→21:23)
[2016-11-29] MEDS: TRAMADOL HCL 50 MG TABLET PO PRN (09:39)
--- NOTE | 2016-11-29 12:00 | PDOC PROGRESS REPORT ---
Subjective Progress Note for:: 11/29/16 Subjective:: Patient seen this AM. No issues continues to have some spasms. Denies fever/ chills/sweats/CP Physical Exam Vital Signs: Temp Pulse Resp BP Pulse Ox 98.2 F 70 16 130/44 H 99 11/29/16 07:18 11/29/16 07:18 11/29/16 07:18 11/29/16 07:18 11/29/16 07:18 Intake & Output 11/28/16 11/29/16 11/30/16 06:59 06:59 06:59 Intake Total 5000 1180 Output Total 525 400 Balance 4475 780 Weight 60.5 kg Musculoskeletal exam: PRESENT: other - R LE: Dressing c/d/i, thigh swollen, compartments compressible no sign of compartments syndrome. Intact PF/DF, No Calf Tenderness, DP Pulse 2/4 Results Laboratory Results: 11/29/16 04:26 11/29/16 04:26 11/29/16 11/29/16 04:26 04:26 WBC 11.0 H RBC 2.84 L Hgb 8.6 L Hct 24.8 L MCV 87 MCH 30.3 MCHC 34.7 RDW 13.9 Plt Count 126 L Seg Neutrophils % 75.0 Lymphocytes % 15.5 Monocytes % 8.4 Eosinophils % 0.9 Basophils % 0.2 Absolute Neutrophils 8.3 H Absolute Lymphocytes 1.7 Absolute Monocytes 0.9 Absolute Eosinophils 0.1 Absolute Basophils 0.0 Sodium 132.0 L Potassium 4.2 Chloride 101 Carbon Dioxide 26 Anion Gap 5 BUN 27 H Creatinine 1.03 Est GFR ( Amer) > 60 Est GFR (Non-Af Amer) 52 L Glucose 228 H Calcium 7.9 L Impressions: Chest X-Ray 11/26/16 06:46 IMPRESSION: Nothing acute. Transvenous pacer noted. Head CT 11/26/16 06:46 IMPRESSION: NORMAL BRAIN CT WITHOUT CONTRAST. Fluoroscopy 11/27/16 00:00 IMPRESSION: IMAGE(S) OBTAINED DURING PROCEDURE. Hip/Pelvis X-Ray 11/27/16 00:00 IMPRESSION: IMAGE(S) OBTAINED DURING PROCEDURE. Assessment & Plan - Diagnosis (1) Fracture, intertrochanteric, right femur Qualifiers: Encounter type: initial encounter Fracture type: closed Qualified Code(s): S72.141A - Displaced intertrochanteric fracture of right femur, initial encounter for closed fracture Is this a current diagnosis for this admission?: YesPlan: S/P IM Nail Subtrochanteric Femur Fx 1. PT WBAT 2. Acute on Chronic Anemia 3. Pain control will start muscle relaxer 4. D/C Planning Home w/ Home Health
--- NOTE | 2016-11-29 15:27 | PDOC PROGRESS REPORT ---
Subjective Progress Note for:: 11/29/16 Subjective:: Patient is postoperative day #3 status post ORIF of right hip. Pain is controlled. She was able to get up with physical therapy today. Patient denies fever, chills, headache, new focal weakness, chest pain, shortness of breath, abdominal pain, nausea, vomiting, diarrhea, constipation. Physical Exam Vital Signs: Temp Pulse Resp BP Pulse Ox 98.1 F 69 14 122/52 L 98 11/29/16 12:00 11/29/16 12:00 11/29/16 12:00 11/29/16 12:00 11/29/16 12:00 Intake & Output 11/28/16 11/29/16 11/30/16 06:59 06:59 06:59 Intake Total 5000 1180 Output Total 525 400 Balance 4475 780 Weight 60.5 kg GENERAL: No acute distress HEENT: Conjunctiva clear, nonicteric, moist mucous membranes, no JVD, midline trachea RESPIRATORY: Clear to auscultation bilaterally, no wheezes, no rhonchi CARDIAC: Regular rate and rhythm, no murmurs/gallops/rubs ABDOMEN: Soft, nondistended, nontender, positive bowel sounds, no rebound, no guarding EXTREMETIES: No edema, cyanosis, clubbing NEUROLOGIC: Alert, oriented to person/place/time, CN's grossly intact, no focal deficits SKIN: Incisions without signs of infection. Patient has skin tears noted to her right wrist, right elbow, right leg. PSYCH: Normal mood, normal affect Results Laboratory Results: 11/29/16 04:26 11/29/16 04:26 11/29/16 11/29/16 04:26 04:26 WBC 11.0 H RBC 2.84 L Hgb 8.6 L Hct 24.8 L MCV 87 MCH 30.3 MCHC 34.7 RDW 13.9 Plt Count 126 L Seg Neutrophils % 75.0 Lymphocytes % 15.5 Monocytes % 8.4 Eosinophils % 0.9 Basophils % 0.2 Absolute Neutrophils 8.3 H Absolute Lymphocytes 1.7 Absolute Monocytes 0.9 Absolute Eosinophils 0.1 Absolute Basophils 0.0 Sodium 132.0 L Potassium 4.2 Chloride 101 Carbon Dioxide 26 Anion Gap 5 BUN 27 H Creatinine 1.03 Est GFR ( Amer) > 60 Est GFR (Non-Af Amer) 52 L Glucose 228 H Calcium 7.9 L Impressions: Chest X-Ray 11/26/16 06:46 IMPRESSION: Nothing acute. Transvenous pacer noted. Head CT 11/26/16 06:46 IMPRESSION: NORMAL BRAIN CT WITHOUT CONTRAST. Fluoroscopy 11/27/16 00:00 IMPRESSION: IMAGE(S) OBTAINED DURING PROCEDURE. Hip/Pelvis X-Ray 11/27/16 00:00 IMPRESSION: IMAGE(S) OBTAINED DURING PROCEDURE. Assessment & Plan - Diagnosis (1) Fracture, intertrochanteric, right femur Qualifiers: Encounter type: initial encounter Fracture type: closed Qualified Code(s): S72.141A - Displaced intertrochanteric fracture of right femur, initial encounter for closed fracture Is this a current diagnosis for this admission?: YesPlan: Status post ORIF on 11/27/2016. Weightbearing as tolerated. Continue physical therapy. (2) Acute blood loss anemia Is this a current diagnosis for this admission?: YesPlan: Transfused 2 units PRBC on 11/27/2016. Likely secondary to internal bleeding from hip fracture. Hold heparin. Repeat H&H in a.m. Start iron supplementation. (3) A-fib Qualifiers: Atrial fibrillation type: paroxysmal Qualified Code(s): I48.0 - Paroxysmal atrial fibrillation Is this a current diagnosis for this admission?: YesPlan: Continue telemetry monitoring. Continue sotalol. Patient is status post pacemaker. (4) CAD (coronary artery disease) Qualifiers: Coronary Disease-Associated Artery/Lesion type: [place] artery [place] vs. transplanted heart: [place] heart Associated angina: without angina Qualified Code(s): I25.10 - Atherosclerotic heart disease of [place] coronary artery without angina pectoris Is this a current diagnosis for this admission?: YesPlan: Continue Lipitor. Patient does not normally take antiplatelet regimen according to her and her daughter. 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 (5) Diabetes mellitus, insulin dependent (IDDM), controlled Is this a current diagnosis for this admission?: YesPlan: Continue insulin pump. (6) Skin tear of right forearm without complication Qualifiers: Encounter type: initial encounter Qualified Code(s): S51.811A - Laceration without foreign body of right forearm, initial encounter Is this a current diagnosis for this admission?: YesPlan: Xeroform dressing changes daily. (7) DVT prophylaxis Is this a current diagnosis for this admission?: YesPlan: Hold heparin for now secondary to instability in H&H. - Time Time Spent with patient: 35 or more minutes
[2016-11-29] MEDS: CYCLOBENZAPRINE HCL 10 MG TABLET PO PRN (17:10)
[2016-11-29] MEDS: ATORVASTATIN CALCIUM 10 MG TABLET PO SCH (21:23)
[2016-11-30 04:28] LABS: HEMATOCRIT 24.8 % (36.0-47.0); HEMOGLOBIN 8.5 g/dL (12.0-15.5); HGB HCT DIFFERENCE 0.7; MEAN CORPUSCULAR HEMOGLOBIN 30.4 pg (27.0-33.4); MEAN CORPUSCULAR HGB CONC 34.1 g/dL (32.0-36.0); MEAN CORPUSCULAR VOLUME 89 fl (80-97); RED BLOOD COUNT 2.79 10^6/uL (3.72-5.28); RED CELL DISTRIBUTION WIDTH 14.3 % (11.5-14.0); WHITE BLOOD COUNT 9.9 10^3/uL (4.0-10.5)
[2016-11-30] MEDS: CEFAZOLIN 2 GM/D5W RTU 2 GM/50 ML RTUPB IV SCH (06:05)
[2016-11-30] MEDS: DOCUSATE SODIUM 100 MG CAPSULE PO SCH ×2 (09:24→17:02)
[2016-11-30] MEDS: ESCITALOPRAM OXALATE 10 MG TABLET PO SCH (09:24)
[2016-11-30] MEDS: SOTALOL HCL 80 MG TABLET PO SCH ×2 (09:24→21:32)
[2016-11-30] MEDS: FERROUS SULFATE 325 MG TABLET PO SCH ×2 (09:24→17:02)
[2016-11-30] MEDS: TRAMADOL HCL 50 MG TABLET PO PRN (10:41)
[2016-11-30] MEDS: CEPHALEXIN 500 MG CAPSULE PO SCH ×2 (14:23→21:32)
--- NOTE | 2016-11-30 16:58 | PDOC PROGRESS REPORT ---
Subjective Progress Note for:: 11/30/16 Subjective:: Patient seen this afternoon. Pain improving. Denies CP/SOB. Was able to ambulate 100ft. Physical Exam Vital Signs: Temp Pulse Resp BP Pulse Ox 97.6 F 70 16 138/47 H 100 11/30/16 15:31 11/30/16 15:31 11/30/16 15:31 11/30/16 15:31 11/30/16 15:31 Intake & Output 11/29/16 11/30/16 12/01/16 06:59 06:59 06:59 Intake Total 1180 1335 Output Total 400 2200 Balance 780 -865 Weight 60.5 kg 58.2 kg Musculoskeletal exam: PRESENT: other - Right LE: Dressing c/d/i. Thigh swollen but improved. Compartments soft and compressible no sign of compartment syndrome. No calf swelling. Negative Homans. Positive DF/PF. No sensory deficits. Results Laboratory Results: 11/30/16 03:30 11/29/16 04:26 11/30/16 03:30 WBC 9.9 RBC 2.79 L Hgb 8.5 L Hct 24.8 L MCV 89 MCH 30.4 MCHC 34.1 RDW 14.3 H Plt Count 150 Impressions: Chest X-Ray 11/26/16 06:46 IMPRESSION: Nothing acute. Transvenous pacer noted. Head CT 11/26/16 06:46 IMPRESSION: NORMAL BRAIN CT WITHOUT CONTRAST. Fluoroscopy 11/27/16 00:00 IMPRESSION: IMAGE(S) OBTAINED DURING PROCEDURE. Hip/Pelvis X-Ray 11/27/16 00:00 IMPRESSION: IMAGE(S) OBTAINED DURING PROCEDURE. Assessment & Plan - Diagnosis (1) Fracture, intertrochanteric, right femur Qualifiers: Encounter type: initial encounter Fracture type: closed Qualified Code(s): S72.141A - Displaced intertrochanteric fracture of right femur, initial encounter for closed fracture Is this a current diagnosis for this admission?: YesPlan: Right IM Nail Subtrochanteric Fx 1. PT: WBAT 2. Acute on Chronic Anemia: Remains Stable 3. DVT Prophylaxis: Heparin 4. D/C Planning anticipate D/C Home Early Next Week.
--- NOTE | 2016-11-30 19:05 | PDOC PROGRESS REPORT ---
Subjective Progress Note for:: 11/30/16 Subjective:: No new complaints. Pain control. Patient denies fever, chills, headache, new focal weakness, chest pain, shortness of breath, abdominal pain, nausea, vomiting, diarrhea, constipation. Physical Exam Vital Signs: Temp Pulse Resp BP Pulse Ox 97.6 F 70 16 138/47 H 100 11/30/16 15:31 11/30/16 15:31 11/30/16 15:31 11/30/16 15:31 11/30/16 15:31 Intake & Output 11/29/16 11/30/16 12/01/16 06:59 06:59 06:59 Intake Total 1180 1335 800 Output Total 400 2200 600 Balance 780 -865 200 Weight 60.5 kg 58.2 kg GENERAL: No acute distress HEENT: Conjunctiva clear, nonicteric, moist mucous membranes, no JVD, midline trachea RESPIRATORY: Clear to auscultation bilaterally, no wheezes, no rhonchi CARDIAC: Regular rate and rhythm, no murmurs/gallops/rubs ABDOMEN: Soft, nondistended, nontender, positive bowel sounds, no rebound, no guarding EXTREMETIES: No edema, cyanosis, clubbing NEUROLOGIC: Alert, oriented to person/place/time, CN's grossly intact, no focal deficits SKIN: Incisions without signs of infection. Patient has skin tears noted to her right wrist, right elbow, right leg. PSYCH: Normal mood, normal affect Results Laboratory Results: 11/30/16 03:30 11/29/16 04:26 11/30/16 03:30 WBC 9.9 RBC 2.79 L Hgb 8.5 L Hct 24.8 L MCV 89 MCH 30.4 MCHC 34.1 RDW 14.3 H Plt Count 150 Impressions: Chest X-Ray 11/26/16 06:46 IMPRESSION: Nothing acute. Transvenous pacer noted. Head CT 11/26/16 06:46 IMPRESSION: NORMAL BRAIN CT WITHOUT CONTRAST. Fluoroscopy 11/27/16 00:00 IMPRESSION: IMAGE(S) OBTAINED DURING PROCEDURE. Hip/Pelvis X-Ray 11/27/16 00:00 IMPRESSION: IMAGE(S) OBTAINED DURING PROCEDURE. Assessment & Plan - Diagnosis (1) Fracture, intertrochanteric, right femur Qualifiers: Encounter type: initial encounter Fracture type: closed Qualified Code(s): S72.141A - Displaced intertrochanteric fracture of right femur, initial encounter for closed fracture Is this a current diagnosis for this admission?: YesPlan: Status post ORIF on 11/27/2016. Weightbearing as tolerated. Continue physical therapy. (2) Acute blood loss anemia Is this a current diagnosis for this admission?: YesPlan: Transfused 2 units PRBC on 11/27/2016. Likely secondary to internal bleeding from hip fracture. Hold heparin. Repeat H&H in a.m. Continue iron supplementation. (3) A-fib Qualifiers: Atrial fibrillation type: paroxysmal Qualified Code(s): I48.0 - Paroxysmal atrial fibrillation Is this a current diagnosis for this admission?: YesPlan: Continue telemetry monitoring. Continue sotalol. Patient is status post pacemaker. (4) CAD (coronary artery disease) Qualifiers: Coronary Disease-Associated Artery/Lesion type: [place] artery [place] vs. transplanted heart: [place] heart Associated angina: without angina Qualified Code(s): I25.10 - Atherosclerotic heart disease of [place] coronary artery without angina pectoris Is this a current diagnosis for this admission?: YesPlan: Continue Lipitor. Patient does not normally take antiplatelet regimen according to her and her daughter. 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 (5) Diabetes mellitus, insulin dependent (IDDM), controlled Is this a current diagnosis for this admission?: YesPlan: Continue insulin pump. I will discontinue IV Ancef since this is mixed in dextrose. (6) Skin tear of right forearm without complication Qualifiers: Encounter type: initial encounter Qualified Code(s): S51.811A - Laceration without foreign body of right forearm, initial encounter Is this a current diagnosis for this admission?: YesPlan: Xeroform dressing changes daily. Discontinue IV Ancef. Start Keflex. (7) DVT prophylaxis Is this a current diagnosis for this admission?: YesPlan: Hold heparin for now secondary to instability in H&H. - Time Time Spent with patient: 35 or more minutes
[2016-11-30] MEDS: ATORVASTATIN CALCIUM 10 MG TABLET PO SCH (21:32)
[2016-12-01 04:30] LABS: ABSOLUTE EOSINOPHILS # (AUTO) 0.1 10^3/uL (0.0-0.6); ABSOLUTE LYMPHOCYTES (AUTO) 1.9 10^3/uL (0.5-4.7); ABSOLUTE MONOCYTES (AUTO) 0.7 10^3/uL (0.1-1.4); ABSOLUTE NEUT (AUTO) 6.2 10^3/uL (1.7-8.2); BASOPHILS % (AUTO) 0.5 % (0-2); EOSINOPHILS % (AUTO) 1.6 % (0-6); HEMATOCRIT 22.6 % (36.0-47.0); HGB HCT DIFFERENCE 0.5; LYMPHOCYTES % (AUTO) 20.9 % (13-45); MEAN CORPUSCULAR HEMOGLOBIN 30.5 pg (27.0-33.4); MEAN CORPUSCULAR HGB CONC 33.9 g/dL (32.0-36.0); MEAN CORPUSCULAR VOLUME 90 fl (80-97); MONOCYTES % (AUTO) 7.8 % (3-13); RED BLOOD COUNT 2.51 10^6/uL (3.72-5.28); RED CELL DISTRIBUTION WIDTH 13.8 % (11.5-14.0); SEGMENTED NEUTROPHILS % (AUTO) 69.2 % (42-78)
[2016-12-01 04:32] LABS: HEMOGLOBIN 7.7 g/dL (12.0-15.5)
[2016-12-01 04:44] LABS: ANION GAP 6 (5-19); BLOOD UREA NITROGEN 29 mg/dL (7-20); CALCIUM 8.7 mg/dL (8.4-10.2); CARBON DIOXIDE 28 mmol/L (22-30); CHLORIDE 100 mmol/L (98-107); CREATININE RESULT 0.82 mg/dL (0.52-1.25); GLUCOSE 316 mg/dL (75-110); POTASSIUM 4.2 mmol/L (3.6-5.0)
[2016-12-01] MEDS: CEPHALEXIN 500 MG CAPSULE PO SCH ×3 (06:21→22:01)
[2016-12-01] MEDS ORDERED: NORMAL SALINE 250 ML IV PRN ×2 (06:59)
[2016-12-01] MEDS: SOTALOL HCL 80 MG TABLET PO SCH ×2 (10:11→22:01)
[2016-12-01] MEDS: FERROUS SULFATE 325 MG TABLET PO SCH ×2 (10:11→17:27)
[2016-12-01] MEDS: DOCUSATE SODIUM 100 MG CAPSULE PO SCH ×2 (10:12→17:27)
[2016-12-01] MEDS: ESCITALOPRAM OXALATE 10 MG TABLET PO SCH (10:12)
[2016-12-01] MEDS: TRAMADOL HCL 50 MG TABLET PO PRN (10:13)
[2016-12-01 14:17] LABS: ABSOLUTE BASOPHILS # (AUTO) 0.1 10^3/uL (0.0-0.2); ABSOLUTE EOSINOPHILS # (AUTO) 0.2 10^3/uL (0.0-0.6); ABSOLUTE LYMPHOCYTES (AUTO) 1.5 10^3/uL (0.5-4.7); ABSOLUTE MONOCYTES (AUTO) 0.7 10^3/uL (0.1-1.4); ABSOLUTE NEUT (AUTO) 7.1 10^3/uL (1.7-8.2); BASOPHILS % (AUTO) 0.6 % (0-2); EOSINOPHILS % (AUTO) 1.7 % (0-6); HEMATOCRIT 29.7 % (36.0-47.0); HGB HCT DIFFERENCE 1.2; LYMPHOCYTES % (AUTO) 16.1 % (13-45); MEAN CORPUSCULAR HEMOGLOBIN 30.4 pg (27.0-33.4); MEAN CORPUSCULAR HGB CONC 34.6 g/dL (32.0-36.0); MEAN CORPUSCULAR VOLUME 88 fl (80-97); MONOCYTES % (AUTO) 7.6 % (3-13); RED BLOOD COUNT 3.38 10^6/uL (3.72-5.28); WHITE BLOOD COUNT 9.6 10^3/uL (4.0-10.5)
--- NOTE | 2016-12-01 14:21 | PDOC PROGRESS REPORT ---
Subjective Progress Note for:: 12/01/16 Subjective:: Patient's glucoses been running elevated however she has been constipated and taking in apple juice and prune juice to relieve this. She has a poor appetite. Patient denies fever, chills, headache, new focal weakness, chest pain, shortness of breath, abdominal pain, nausea, vomiting, diarrhea. Physical Exam Vital Signs: Temp Pulse Resp BP Pulse Ox 98.1 F 69 16 145/48 H 98 12/01/16 07:19 12/01/16 07:19 12/01/16 07:19 12/01/16 07:19 12/01/16 07:19 Intake & Output 11/30/16 12/01/16 12/02/16 06:59 06:59 06:59 Intake Total 1335 1210 360 Output Total 2200 1300 400 Balance -865 -90 -40 Weight 58.2 kg 57.4 kg Results Laboratory Results: 12/01/16 03:22 12/01/16 12/01/16 12/01/16 03:22 03:22 07:17 WBC 9.0 RBC 2.51 L Hgb 7.7 L Hct 22.6 L MCV 90 MCH 30.5 MCHC 33.9 RDW 13.8 Plt Count 161 Seg Neutrophils % 69.2 Lymphocytes % 20.9 Monocytes % 7.8 Eosinophils % 1.6 Basophils % 0.5 Absolute Neutrophils 6.2 Absolute Lymphocytes 1.9 Absolute Monocytes 0.7 Absolute Eosinophils 0.1 Absolute Basophils 0.0 Sodium 134.0 L Potassium 4.2 Chloride 100 Carbon Dioxide 28 Anion Gap 6 BUN 29 H Creatinine 0.82 Est GFR ( Amer) > 60 Est GFR (Non-Af Amer) > 60 Glucose 316 H Calcium 8.7 Blood Type A POSITIVE Antibody Screen NEGATIVE Impressions: Chest X-Ray 11/26/16 06:46 IMPRESSION: Nothing acute. Transvenous pacer noted. Head CT 11/26/16 06:46 IMPRESSION: NORMAL BRAIN CT WITHOUT CONTRAST. Fluoroscopy 11/27/16 00:00 IMPRESSION: IMAGE(S) OBTAINED DURING PROCEDURE. Hip/Pelvis X-Ray 11/27/16 00:00 IMPRESSION: IMAGE(S) OBTAINED DURING PROCEDURE. Assessment & Plan - Diagnosis (1) Fracture, intertrochanteric, right femur Qualifiers: Encounter type: initial encounter Fracture type: closed Qualified Code(s): S72.141A - Displaced intertrochanteric fracture of right femur, initial encounter for closed fracture Is this a current diagnosis for this admission?: YesPlan: Status post ORIF on 11/27/2016. Weightbearing as tolerated. Continue physical therapy. (2) Acute blood loss anemia Is this a current diagnosis for this admission?: YesPlan: Transfused 2 units PRBC on 11/27/2016. I will transfuse another unit PRBC today. Likely secondary to internal bleeding from hip fracture, however I will check CT abdomen/pelvis to exclude retroperitoneal bleed. Continue to hold heparin. Repeat H&H in a.m. Continue iron supplementation. (3) A-fib Qualifiers: Atrial fibrillation type: paroxysmal Qualified Code(s): I48.0 - Paroxysmal atrial fibrillation Is this a current diagnosis for this admission?: YesPlan: Continue telemetry monitoring. Continue sotalol. Patient is status post pacemaker. (4) CAD (coronary artery disease) Qualifiers: Coronary Disease-Associated Artery/Lesion type: [place] artery [place] vs. transplanted heart: [place] heart Associated angina: without angina Qualified Code(s): I25.10 - Atherosclerotic heart disease of [place] coronary artery without angina pectoris Is this a current diagnosis for this admission?: YesPlan: Continue Lipitor. Patient does not normally take antiplatelet regimen according to her and her daughter. 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 (5) Diabetes mellitus, insulin dependent (IDDM), controlled Is this a current diagnosis for this admission?: YesPlan: Continue insulin pump, daughter has increased basal rate. Patient and daughter advised to discontinue apple and prune juice secondary to hyperglycemia. (6) Skin tear of right forearm without complication Qualifiers: Encounter type: initial encounter Qualified Code(s): S51.811A - Laceration without foreign body of right forearm, initial encounter Is this a current diagnosis for this admission?: YesPlan: Xeroform dressing changes daily. Continue Keflex until 12/08/2016. (7) DVT prophylaxis Is this a current diagnosis for this admission?: YesPlan: Hold heparin for now secondary to instability in H&H. - Time Time Spent with patient: 35 or more minutes
[2016-12-01 14:25] LABS: HEMOGLOBIN 10.3 g/dL (12.0-15.5)
[2016-12-01] MEDS ORDERED: MAGNESIUM HYDROXIDE SUSP 30 ML UDCUP PO ONE (14:30)
--- NOTE | 2016-12-01 16:02 | PDOC PROGRESS REPORT ---
Subjective Progress Note for:: 12/01/16 Subjective:: Patient resting comfortably in bed. Patient received transfusion today for acute blood loss anemia. No issues overnight. Progressing with physical therapy very well. Physical Exam Vital Signs: Temp Pulse Resp BP Pulse Ox 36.7 C 69 16 145/48 H 98 12/01/16 07:19 12/01/16 07:19 12/01/16 07:19 12/01/16 07:19 12/01/16 07:19 Intake & Output 11/30/16 12/01/16 12/02/16 06:59 06:59 06:59 Intake Total 1335 1210 360 Output Total 2200 1300 400 Balance -865 -90 -40 Weight 58.2 kg 57.4 kg General appearance: PRESENT: no acute distress Adult Front & Back Image: 1 - Incisions and dressings are dry clean and intact. Patient is neurovascularly intact distally. Results Laboratory Results: 12/01/16 14:10 12/01/16 03:22 12/01/16 12/01/16 12/01/16 03:22 03:22 07:17 WBC 9.0 RBC 2.51 L Hgb 7.7 L Hct 22.6 L MCV 90 MCH 30.5 MCHC 33.9 RDW 13.8 Plt Count 161 Seg Neutrophils % 69.2 Lymphocytes % 20.9 Monocytes % 7.8 Eosinophils % 1.6 Basophils % 0.5 Absolute Neutrophils 6.2 Absolute Lymphocytes 1.9 Absolute Monocytes 0.7 Absolute Eosinophils 0.1 Absolute Basophils 0.0 Sodium 134.0 L Potassium 4.2 Chloride 100 Carbon Dioxide 28 Anion Gap 6 BUN 29 H Creatinine 0.82 Est GFR ( Amer) > 60 Est GFR (Non-Af Amer) > 60 Glucose 316 H Calcium 8.7 Blood Type A POSITIVE Antibody Screen NEGATIVE 12/01/16 14:10 WBC 9.6 RBC 3.38 L Hgb 10.3 L D Hct 29.7 L MCV 88 MCH 30.4 MCHC 34.6 RDW 14.0 Plt Count 171 Seg Neutrophils % 74.0 Lymphocytes % 16.1 Monocytes % 7.6 Eosinophils % 1.7 Basophils % 0.6 Absolute Neutrophils 7.1 Absolute Lymphocytes 1.5 Absolute Monocytes 0.7 Absolute Eosinophils 0.2 Absolute Basophils 0.1 Sodium Potassium Chloride Carbon Dioxide Anion Gap BUN Creatinine Est GFR ( Amer) Est GFR (Non-Af Amer) Glucose Calcium Blood Type Antibody Screen Impressions: Chest X-Ray 11/26/16 06:46 IMPRESSION: Nothing acute. Transvenous pacer noted. Head CT 11/26/16 06:46 IMPRESSION: NORMAL BRAIN CT WITHOUT CONTRAST. Fluoroscopy 11/27/16 00:00 IMPRESSION: IMAGE(S) OBTAINED DURING PROCEDURE. Hip/Pelvis X-Ray 11/27/16 00:00 IMPRESSION: IMAGE(S) OBTAINED DURING PROCEDURE. Abdomen/Pelvis CT 12/01/16 00:00 IMPRESSION: No evidence for a retroperitoneal bleed is seen. What is presumed represent postsurgical changes are identified in the subcutaneous fat and soft tissues in the right flank extending into the right pelvic region as noted above. Urine distended bladder is identified containing air which is of uncertain etiology. Clinical correlation is recommended. Other findings as noted above Assessment & Plan - Plan Summary Plan Summary: Patient is postop day 4 nailing of right intertrochanteric hip fracture. Patient instructed to be weightbearing as tolerated and continue working with physical therapy. DVT chemical prophylaxis has been held due to decrease in hematocrit requiring transfusion. I agree with Dr. Fernandez most likely secondary to postsurgical blood loss. In the meantime I recommend mechanical prophylaxis and the patient should ambulate as much as she can tolerate. Continue pain control as needed.
[2016-12-01] MEDS: ATORVASTATIN CALCIUM 10 MG TABLET PO SCH (22:01)
[2016-12-01] MEDS: CYCLOBENZAPRINE HCL 10 MG TABLET PO PRN (22:12)
[2016-12-02 05:25] LABS: ABSOLUTE EOSINOPHILS # (AUTO) 0.2 10^3/uL (0.0-0.6); ABSOLUTE MONOCYTES (AUTO) 0.8 10^3/uL (0.1-1.4); BASOPHILS % (AUTO) 0.3 % (0-2); HEMATOCRIT 29.4 % (36.0-47.0); HEMOGLOBIN 10.2 g/dL (12.0-15.5); HGB HCT DIFFERENCE 1.2; LYMPHOCYTES % (AUTO) 20.1 % (13-45); MEAN CORPUSCULAR HEMOGLOBIN 30.5 pg (27.0-33.4); MEAN CORPUSCULAR HGB CONC 34.7 g/dL (32.0-36.0); MEAN CORPUSCULAR VOLUME 88 fl (80-97); RED BLOOD COUNT 3.34 10^6/uL (3.72-5.28); RED CELL DISTRIBUTION WIDTH 13.8 % (11.5-14.0); SEGMENTED NEUTROPHILS % (AUTO) 69.6 % (42-78); WHITE BLOOD COUNT 10.1 10^3/uL (4.0-10.5)
[2016-12-02 05:46] LABS: ANION GAP 5 (5-19); BLOOD UREA NITROGEN 26 mg/dL (7-20); CALCIUM 8.3 mg/dL (8.4-10.2); CARBON DIOXIDE 30 mmol/L (22-30); CHLORIDE 98 mmol/L (98-107); CREATININE RESULT 0.84 mg/dL (0.52-1.25); GLUCOSE 258 mg/dL (75-110); SODIUM 133.3 mmol/L (137-145)
[2016-12-02] MEDS: CEPHALEXIN 500 MG CAPSULE PO SCH ×3 (06:23→21:16)
[2016-12-02] MEDS: TRAMADOL HCL 50 MG TABLET PO PRN ×2 (08:36→23:48)
[2016-12-02] MEDS: DOCUSATE SODIUM 100 MG CAPSULE PO SCH ×2 (09:24→18:34)
[2016-12-02] MEDS: FERROUS SULFATE 325 MG TABLET PO SCH ×2 (09:24→18:35)
[2016-12-02] MEDS: ESCITALOPRAM OXALATE 10 MG TABLET PO SCH (09:25)
[2016-12-02] MEDS: SOTALOL HCL 80 MG TABLET PO SCH ×2 (09:25→21:16)
--- NOTE | 2016-12-02 14:00 | PDOC PROGRESS REPORT ---
Subjective Progress Note for:: 12/02/16 Subjective:: Patient's glucoses been running elevated. She states the constipation has been relieved as she had a bowel movement yesterday. Patient denies fever, chills, headache, new focal weakness, chest pain, shortness of breath, abdominal pain, nausea, vomiting, diarrhea. Physical Exam Vital Signs: Temp Pulse Resp BP Pulse Ox 98.5 F 69 16 149/51 H 98 12/02/16 11:19 12/02/16 11:19 12/02/16 11:19 12/02/16 11:19 12/02/16 11:19 Intake & Output 12/01/16 12/02/16 12/03/16 06:59 06:59 06:59 Intake Total 1210 1065 Output Total 1300 Balance -90 1065 Weight 57.4 kg 58.2 kg GENERAL: No acute distress HEENT: Conjunctiva clear, nonicteric, moist mucous membranes, no JVD, midline trachea RESPIRATORY: Clear to auscultation bilaterally, no wheezes, no rhonchi CARDIAC: Regular rate and rhythm, no murmurs/gallops/rubs ABDOMEN: Soft, nondistended, nontender, positive bowel sounds, no rebound, no guarding EXTREMETIES: No edema, cyanosis, clubbing NEUROLOGIC: Alert, oriented to person/place/time, CN's grossly intact, no focal deficits SKIN: Incisions without signs of infection. Patient has skin tears noted to her right wrist, right elbow, right leg. PSYCH: Normal mood, normal affect Results Laboratory Results: 12/02/16 04:23 12/02/16 04:23 12/01/16 12/01/16 12/02/16 07:17 14:10 04:23 WBC 9.6 10.1 RBC 3.38 L 3.34 L Hgb 10.3 L D 10.2 L Hct 29.7 L 29.4 L MCV 88 88 MCH 30.4 30.5 MCHC 34.6 34.7 RDW 14.0 13.8 Plt Count 171 175 Seg Neutrophils % 74.0 69.6 Lymphocytes % 16.1 20.1 Monocytes % 7.6 8.0 Eosinophils % 1.7 2.0 Basophils % 0.6 0.3 Absolute Neutrophils 7.1 7.0 Absolute Lymphocytes 1.5 2.0 Absolute Monocytes 0.7 0.8 Absolute Eosinophils 0.2 0.2 Absolute Basophils 0.1 0.0 Sodium Potassium Chloride Carbon Dioxide Anion Gap BUN Creatinine Est GFR ( Amer) Est GFR (Non-Af Amer) Glucose Calcium Blood Type A POSITIVE Antibody Screen NEGATIVE 12/02/16 04:23 WBC RBC Hgb Hct MCV MCH MCHC RDW Plt Count Seg Neutrophils % Lymphocytes % Monocytes % Eosinophils % Basophils % Absolute Neutrophils Absolute Lymphocytes Absolute Monocytes Absolute Eosinophils Absolute Basophils Sodium 133.3 L Potassium 4.0 Chloride 98 Carbon Dioxide 30 Anion Gap 5 BUN 26 H Creatinine 0.84 Est GFR ( Amer) > 60 Est GFR (Non-Af Amer) > 60 Glucose 258 H Calcium 8.3 L Blood Type Antibody Screen Impressions: Chest X-Ray 11/26/16 06:46 IMPRESSION: Nothing acute. Transvenous pacer noted. Head CT 11/26/16 06:46 IMPRESSION: NORMAL BRAIN CT WITHOUT CONTRAST. Fluoroscopy 11/27/16 00:00 IMPRESSION: IMAGE(S) OBTAINED DURING PROCEDURE. Hip/Pelvis X-Ray 11/27/16 00:00 IMPRESSION: IMAGE(S) OBTAINED DURING PROCEDURE. Abdomen/Pelvis CT 12/01/16 00:00 IMPRESSION: No evidence for a retroperitoneal bleed is seen. What is presumed represent postsurgical changes are identified in the subcutaneous fat and soft tissues in the right flank extending into the right pelvic region as noted above. Urine distended bladder is identified containing air which is of uncertain etiology. Clinical correlation is recommended. Other findings as noted above Assessment & Plan - Diagnosis (1) Fracture, intertrochanteric, right femur Qualifiers: Encounter type: initial encounter Fracture type: closed Qualified Code(s): S72.141A - Displaced intertrochanteric fracture of right femur, initial encounter for closed fracture Is this a current diagnosis for this admission?: YesPlan: Status post ORIF on 11/27/[address] Marroquin. Weightbearing as tolerated. Continue physical therapy. (2) Acute blood loss anemia Is this a current diagnosis for this admission?: YesPlan: Transfused 2 units PRBC on 11/27/2016 and 1 unit on 12/01/2016. Likely secondary to internal bleeding from hip fracture. CT abdomen negative for Exclude retroperitoneal bleed. Continue to hold heparin. Repeat H&H in a.m. Continue iron supplementation. (3) A-fib Qualifiers: Atrial fibrillation type: paroxysmal Qualified Code(s): I48.0 - Paroxysmal atrial fibrillation Is this a current diagnosis for this admission?: YesPlan: Continue telemetry monitoring. Continue sotalol. Patient is status post pacemaker. (4) CAD (coronary artery disease) Qualifiers: Coronary Disease-Associated Artery/Lesion type: [place] artery [place] vs. transplanted heart: [place] heart Associated angina: without angina Qualified Code(s): I25.10 - Atherosclerotic heart disease of [place] coronary artery without angina pectoris Is this a current diagnosis for this admission?: YesPlan: Continue Lipitor. Patient does not normally take antiplatelet regimen according to her and her daughter. 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 I may consider starting low-dose antiplatelet therapy for this as well as DVT prophylaxis on discharge. (5) Diabetes mellitus, insulin dependent (IDDM), controlled Is this a current diagnosis for this admission?: YesPlan: Continue insulin pump, daughter has increased basal rate. (6) Skin tear of right forearm without complication Qualifiers: Encounter type: initial encounter Qualified Code(s): S51.811A - Laceration without foreign body of right forearm, initial encounter Is this a current diagnosis for this admission?: YesPlan: Xeroform dressing changes daily. Continue Keflex until 12/08/2016. (7) DVT prophylaxis Is this a current diagnosis for this admission?: YesPlan: Hold heparin for now secondary to instability in H&H. May consider just using low-dose aspirin on discharge given instability of H&H. I will discuss with Dr. Lopez galarza. - Time Time Spent with patient: 25-34 minutes
[2016-12-02] MEDS: CYCLOBENZAPRINE HCL 10 MG TABLET PO PRN (21:16)
[2016-12-02] MEDS: ATORVASTATIN CALCIUM 10 MG TABLET PO SCH (21:16)
[2016-12-03] MEDS: CEPHALEXIN 500 MG CAPSULE PO SCH (05:35)
[2016-12-03 06:18] LABS: ABSOLUTE BASOPHILS # (AUTO) 0.1 10^3/uL (0.0-0.2); ABSOLUTE EOSINOPHILS # (AUTO) 0.4 10^3/uL (0.0-0.6); ABSOLUTE LYMPHOCYTES (AUTO) 2.2 10^3/uL (0.5-4.7); ABSOLUTE MONOCYTES (AUTO) 0.7 10^3/uL (0.1-1.4); ABSOLUTE NEUT (AUTO) 6.3 10^3/uL (1.7-8.2); BASOPHILS % (AUTO) 0.6 % (0-2); EOSINOPHILS % (AUTO) 3.9 % (0-6); HEMATOCRIT 29.9 % (36.0-47.0); HEMOGLOBIN 10.1 g/dL (12.0-15.5); HGB HCT DIFFERENCE 0.4; LYMPHOCYTES % (AUTO) 22.9 % (13-45); MEAN CORPUSCULAR HEMOGLOBIN 30.4 pg (27.0-33.4); MEAN CORPUSCULAR HGB CONC 33.8 g/dL (32.0-36.0); MEAN CORPUSCULAR VOLUME 90 fl (80-97); MONOCYTES % (AUTO) 7.6 % (3-13); RED BLOOD COUNT 3.33 10^6/uL (3.72-5.28); RED CELL DISTRIBUTION WIDTH 14.2 % (11.5-14.0); WHITE BLOOD COUNT 9.8 10^3/uL (4.0-10.5)
[2016-12-03] MEDS: ESCITALOPRAM OXALATE 10 MG TABLET PO SCH (09:26)
[2016-12-03] MEDS: DOCUSATE SODIUM 100 MG CAPSULE PO SCH (09:26)
[2016-12-03] MEDS: FERROUS SULFATE 325 MG TABLET PO SCH (09:26)
[2016-12-03] MEDS: SOTALOL HCL 80 MG TABLET PO SCH (09:27)
[2016-12-03] MEDS: TRAMADOL HCL 50 MG TABLET PO PRN (09:28)
[2016-12-03 12:08] VITALS: BP 146/57
--- NOTE | 2016-12-03 13:03 | PDOC PROGRESS REPORT ---
Subjective Progress Note for:: 12/03/16 Subjective:: Patient seen this morning. She states she is doing well. Has been ambulating with assistance. Denies fever chills or sweats. Denies chest pain or shortness of breath. Physical Exam Vital Signs: Temp Pulse Resp BP Pulse Ox 98.3 F 69 16 146/57 H 99 12/03/16 12:24 12/03/16 12:24 12/03/16 12:24 12/03/16 12:24 12/03/16 12:24 Intake & Output 12/02/16 12/03/16 12/04/16 06:59 06:59 06:59 Intake Total 1065 2562 240 Balance 1065 2562 240 Weight 58.2 kg 60.1 kg Musculoskeletal exam: PRESENT: other - Right hip: Minimal swelling. Extensive ecchymosis along the back of the thigh and calf. No calf tenderness. Compartments soft and compressible no sign of compartment syndrome. No sensory deficits. Intact plantar flexion/dorsiflexion. Incision is clean/dry/intact. Results Laboratory Results: 12/03/16 05:07 12/02/16 04:23 12/01/16 12/03/16 07:17 05:07 WBC 9.8 RBC 3.33 L Hgb 10.1 L Hct 29.9 L MCV 90 MCH 30.4 MCHC 33.8 RDW 14.2 H Plt Count 197 Seg Neutrophils % 65.0 Lymphocytes % 22.9 Monocytes % 7.6 Eosinophils % 3.9 Basophils % 0.6 Absolute Neutrophils 6.3 Absolute Lymphocytes 2.2 Absolute Monocytes 0.7 Absolute Eosinophils 0.4 Absolute Basophils 0.1 Blood Type A POSITIVE Antibody Screen NEGATIVE Impressions: Chest X-Ray 11/26/16 06:46 IMPRESSION: Nothing acute. Transvenous pacer noted. Head CT 11/26/16 06:46 IMPRESSION: NORMAL BRAIN CT WITHOUT CONTRAST. Fluoroscopy 11/27/16 00:00 IMPRESSION: IMAGE(S) OBTAINED DURING PROCEDURE. Hip/Pelvis X-Ray 11/27/16 00:00 IMPRESSION: IMAGE(S) OBTAINED DURING PROCEDURE. Abdomen/Pelvis CT 12/01/16 00:00 IMPRESSION: No evidence for a retroperitoneal bleed is seen. What is presumed represent postsurgical changes are identified in the subcutaneous fat and soft tissues in the right flank extending into the right pelvic region as noted above. Urine distended bladder is identified containing air which is of uncertain etiology. Clinical correlation is recommended. Other findings as noted above Assessment & Plan - Diagnosis (1) Fracture, intertrochanteric, right femur Qualifiers: Encounter type: initial encounter Fracture type: closed Qualified Code(s): S72.141A - Displaced intertrochanteric fracture of right femur, initial encounter for closed fracture Is this a current diagnosis for this admission?: YesPlan: Given the patient's age and severity of her injury I feel she is progressing appropriately walking approximately 180 feet in therapy. She does have extensive ecchymosis likely from the original injury. I do feel she is progressing appropriately that she does not require inpatient rehabilitation. I have recommended home health with home physical therapy. As for DVT prophylaxis she does have somewhat increased risk of anemia and thus I feel aspirin is a reasonable option we will defer this to Dr. Fernandez. Patient orthopedically stable for discharge home when okay with hospitalist.
--- NOTE | 2016-12-03 14:32 | PDOC DISCHARGE SUMMARY ---
General - Admit/Disc Date/PCP Admission Date/Primary Care Provider: 11/26/16 10:24 RON Holley RICHARD Discharge Date: 12/03/16 - Discharge Diagnosis (1) Fracture, intertrochanteric, right femur Is this a current diagnosis for this admission?: Yes (2) Acute blood loss anemia Is this a current diagnosis for this admission?: Yes (3) A-fib Is this a current diagnosis for this admission?: Yes (4) CAD (coronary artery disease) Is this a current diagnosis for this admission?: Yes (5) Diabetes mellitus, insulin dependent (IDDM), controlled Is this a current diagnosis for this admission?: Yes (6) Skin tear of right forearm without complication Is this a current diagnosis for this admission?: Yes (7) DVT prophylaxis Is this a current diagnosis for this admission?: Yes - Additional Information Resuscitation Status: Do Not Intubate Discharge Diet: Cardiac, Diabetic Discharge Activity: Activity As Tolerated Home Medications: Atorvastatin Calcium [Lipitor 10 mg Tablet] 10 mg PO QHS 11/26/16 Escitalopram Oxalate [Lexapro] 5 mg PO DAILY 11/26/16 Sotalol HCl [Sotalol] 40 mg PO Q12 11/26/16 Acetaminophen [Tylenol 325 mg Tablet] 650 mg PO Q4HP PRN tablet 12/03/16 Aspirin [Adult Low Dose Aspirin EC] 81 mg PO DAILY #30 tablet. 12/03/16 Cephalexin Monohydrate [Keflex 500 mg Capsule] 500 mg PO Q8 #15 capsule Cyclobenzaprine HCl [Flexeril 10 mg Tablet] 5 mg PO Q8HP PRN #10 tablet Docusate Sodium [Colace 100 mg Capsule] 100 mg PO BID #60 capsule 12/03/16 Ferrous Sulfate [Feosol 325 mg Tablet] 325 mg PO DAILY #30 tablet 12/03/16 Tramadol HCl [Ultram 50 mg Tablet] 50 mg PO Q6HP PRN #20 tablet 12/03/16 History of Present Illness Patient complains of: Right hip pain History of Present Illness: TY JAMIL is a 76 year old female history of atrial fibrillation with pacemaker, diabetes insulin pump in place, and left knee replacement presents to the ED via EMS after trip and falling with subsequent hip fracture. Patient denied any antecedent illness, loss of consciousness, loss of bowel or bladder function, palpitations, chest pain. Patient had been diagnosed recently with pneumonia and was on doxycycline and Keflex, but repeat chest x-ray in the emergency department does not reveal this. Patient does complain of some right hip pain. Hospital Course Hospital Course: Patient was admitted with diagnosis of right hip fracture. She underwent ORIF on 11/27/[address] Marroquin of orthopedics. She is weightbearing as tolerated. She is currently ambulating 180 feet with physical therapy contact- guard assist. She will be discharged home with home physical therapy services. Patient had acute blood loss anemia secondary to long bone fracture. She required a total of 3 units PRBC during hospitalization. She is started on iron supplementation. Pharmacologic DVT prophylaxis was abandoned. As patient is ambulating she has been sent home on low-dose aspirin instead. Patient has atrial fibrillation and coronary artery disease. She is chronically on Lipitor and sotalol. She is started on aspirin 81 mg daily as well. Patient has insulin-dependent diabetes mellitus and is on insulin pump. Her insulin pump basal rate was increased and by her daughter during this admission secondary to elevated blood glucose readings. Patient will need to follow-up with primary care provider for this. Patient has numerous skin tears on her arms and right leg. Some occurred from her fall and some occurred while in the hospital during repositioning and bandage removal. Patient will need Xeroform dressing changes to bilateral upper extremity skin tears every other day for 7 days. She has been placed on Keflex. Physical Exam Vital Signs: Temp Pulse Resp BP Pulse Ox 98.3 F 69 16 146/57 H 99 12/03/16 12:24 12/03/16 12:24 12/03/16 12:24 12/03/16 12:24 12/03/16 12:24 Intake & Output 12/02/16 12/03/16 12/04/16 06:59 06:59 06:59 Intake Total 1065 2562 240 Balance 1065 2562 240 Weight 58.2 kg 60.1 kg GENERAL: No acute distress HEENT: Conjunctiva clear, nonicteric, moist mucous membranes, no JVD, midline trachea RESPIRATORY: Clear to auscultation bilaterally, no wheezes, no rhonchi CARDIAC: Regular rate and rhythm, no murmurs/gallops/rubs ABDOMEN: Soft, nondistended, nontender, positive bowel sounds, no rebound, no guarding EXTREMETIES: No edema, cyanosis, clubbing NEUROLOGIC: Alert, oriented to person/place/time, CN's grossly intact, no focal deficits SKIN: Incisions without signs of infection. Patient has skin tears noted to her right wrist, left wrist, right elbow, right leg. PSYCH: Normal mood, normal affect Results Laboratory Results: 12/03/16 05:07 12/02/16 04:23 12/01/16 12/03/16 07:17 05:07 WBC 9.8 RBC 3.33 L Hgb 10.1 L Hct 29.9 L MCV 90 MCH 30.4 MCHC 33.8 RDW 14.2 H Plt Count 197 Seg Neutrophils % 65.0 Lymphocytes % 22.9 Monocytes % 7.6 Eosinophils % 3.9 Basophils % 0.6 Absolute Neutrophils 6.3 Absolute Lymphocytes 2.2 Absolute Monocytes 0.7 Absolute Eosinophils 0.4 Absolute Basophils 0.1 Blood Type A POSITIVE Antibody Screen NEGATIVE Labs- Last Values WBC 9.8 10^3/uL (4.0-10.5) 12/03/16 05:07 RBC 3.33 10^6/uL (3.72-5.28) L 12/03/16 05:07 Hgb 10.1 g/dL (12.0-15.5) L 12/03/16 05:07 Hct 29.9 % (36.0-47.0) L 12/03/16 05:07 MCV 90 fl (80-97) 12/03/16 05:07 MCH 30.4 pg (27.0-33.4) 12/03/16 05:07 MCHC 33.8 g/dL (32.0-36.0) 12/03/16 05:07 RDW 14.2 % (11.5-14.0) H 12/03/16 05:07 Plt Count 197 10^3/uL (150-450) 12/03/16 05:07 Seg Neutrophils % 65.0 % (42-78) 12/03/16 05:07 Lymphocytes % 22.9 % (13-45) 12/03/16 05:07 Monocytes % 7.6 % (3-13) 12/03/16 05:07 Eosinophils % 3.9 % (0-6) 12/03/16 05:07 Basophils % 0.6 % (0-2) 12/03/16 05:07 Absolute Neutrophils 6.3 10^3/uL (1.7-8.2) 12/03/16 05:07 Absolute Lymphocytes 2.2 10^3/uL (0.5-4.7) 12/03/16 05:07 Absolute Monocytes 0.7 10^3/uL (0.1-1.4) 12/03/16 05:07 Absolute Eosinophils 0.4 10^3/uL (0.0-0.6) 12/03/16 05:07 Absolute Basophils 0.1 10^3/uL (0.0-0.2) 12/03/16 05:07 PT 14.2 SEC (11.4-15.4) 11/27/16 05:27 INR 1.07 11/27/16 05:27 APTT 34.7 SEC (23.5-35.8) 11/27/16 05:27 Sodium 133.3 mmol/L (137-145) L 12/02/16 04:23 Potassium 4.0 mmol/L (3.6-5.0) 12/02/16 04:23 Chloride 98 mmol/L (98-107) 12/02/16 04:23 Carbon Dioxide 30 mmol/L (22-30) 12/02/16 04:23 Anion Gap 5 (5-19) 12/02/16 04:23 BUN 26 mg/dL (7-20) H 12/02/16 04:23 Creatinine 0.84 mg/dL (0.52-1.25) 12/02/16 04:23 Est GFR ( Amer) > 60 (>60) 12/02/16 04:23 Est GFR (Non-Af Amer) > 60 (>60) 12/02/16 04:23 Glucose 258 mg/dL (75-110) H 12/02/16 04:23 POC Glucose 398 mg/dL (70-110) H 11/30/16 15:57 Calcium 8.3 mg/dL (8.4-10.2) L 12/02/16 04:23 Magnesium 1.9 mg/dL (1.6-2.3) 11/26/16 07:40 Total Bilirubin 0.5 mg/dL (0.2-1.3) 11/26/16 07:40 Direct Bilirubin 0.0 mg/dL (0.0-0.3) 11/26/16 07:40 AST 20 U/L (14-36) 11/26/16 07:40 ALT 23 U/L (9-52) 11/26/16 07:40 Alkaline Phosphatase 70 U/L (38-126) 11/26/16 07:40 Creatine Kinase 69 U/L (30-135) 11/26/16 07:40 CK-MB (CK-2) 1.13 ng/mL (<4.55) 11/26/16 07:40 Troponin I < 0.012 ng/mL 11/26/16 07:40 Total Protein 6.9 g/dL (6.3-8.2) 11/26/16 07:40 Albumin 3.4 g/dL (3.5-5.0) L 11/26/16 07:40 Urine Color STRAW 11/26/16 07:50 Urine Appearance CLEAR 11/26/16 07:50 Urine pH 5.0 (5.0-9.0) 11/26/16 07:50 Ur Specific [place] 1.011 11/26/16 07:50 Urine Protein NEGATIVE mg/dL (NEGATIVE) 11/26/16 07:50 Urine Glucose (UA) 50 mg/dL (NEGATIVE) H 11/26/16 07:50 Urine Ketones NEGATIVE mg/dL (NEGATIVE) 11/26/16 07:50 Urine Blood NEGATIVE (NEGATIVE) 11/26/16 07:50 Urine Nitrite NEGATIVE (NEGATIVE) 11/26/16 07:50 Urine Bilirubin NEGATIVE (NEGATIVE) 11/26/16 07:50 Urine Urobilinogen NEGATIVE mg/dL (<2.0) 11/26/16 07:50 Ur Leukocyte Esterase NEGATIVE (NEGATIVE) 11/26/16 07:50 Urine WBC (Auto) 1 /HPF 11/26/16 07:50 Urine RBC (Auto) 0 /HPF 11/26/16 07:50 Urine Mucus (Auto) RARE /LPF 11/26/16 07:50 Urine Ascorbic Acid NEGATIVE (NEGATIVE) 11/26/16 07:50 Blood Type A POSITIVE 12/01/16 07:17 Blood Type Confirm A POSITIVE 11/27/16 12:05 Antibody Screen NEGATIVE 12/01/16 07:17 Crossmatch See Detail 12/01/16 07:17 Impressions: Chest X-Ray 11/26/16 06:46 IMPRESSION: Nothing acute. Transvenous pacer noted. Head CT 11/26/16 06:46 IMPRESSION: NORMAL BRAIN CT WITHOUT CONTRAST. Fluoroscopy 11/27/16 00:00 IMPRESSION: IMAGE(S) OBTAINED DURING PROCEDURE. Hip/Pelvis X-Ray 11/27/16 00:00 IMPRESSION: IMAGE(S) OBTAINED DURING PROCEDURE. Abdomen/Pelvis CT 12/01/16 00:00 IMPRESSION: No evidence for a retroperitoneal bleed is seen. What is presumed represent postsurgical changes are identified in the subcutaneous fat and soft tissues in the right flank extending into the right pelvic region as noted above. Urine distended bladder is identified containing air which is of uncertain etiology. Clinical correlation is recommended. Other findings as noted above Qualifiers PATEINT BEING DISCHARGED WITH ANY OF THE FOLLOWING DIAGNOSIS?: No Plan Discharge Plan: Follow-up with Dr. Marroquin of orthopedics. Follow-up with primary care provider. Home health/home PT. Time Spent: Less than 30 Minutes
== END 2016-12-03 13:10 | disposition home health service (06) | DRG 481 ==
LOC: ER 06:34 → EH 10:24 → UNDOADMIN 10:38 → 5 11:47
PROVIDERS: ADMIT Family Medicine; ATTEND Family Medicine
PROC: 30233N1 Transfusion of Nonautologous Red Blood Cells into Peripheral Vein, Percutaneous Approach (ICD-10-PCS; 2016-11-27)
PROC: 0QS606Z Reposition Right Upper Femur with Intramedullary Internal Fixation Device, Open Approach (ICD-10-PCS; principal; 2016-11-27 15:30)
PROC: 30233N1 Transfusion of Nonautologous Red Blood Cells into Peripheral Vein, Percutaneous Approach (ICD-10-PCS; 2016-11-28)
PROC: 30233N1 Transfusion of Nonautologous Red Blood Cells into Peripheral Vein, Percutaneous Approach (ICD-10-PCS; 2016-12-01)
DX: S72.141A Displaced intertrochanteric fracture of right femur, initial encounter for closed fracture (principal); D62 Acute posthemorrhagic anemia; I48.0 Paroxysmal atrial fibrillation; S50.811A Abrasion of right forearm, initial encounter; S60.812A Abrasion of left wrist, initial encounter; S60.811A Abrasion of right wrist, initial encounter; S50.311A Abrasion of right elbow, initial encounter; S80.811A Abrasion, right lower leg, initial encounter; Z95.0 Presence of cardiac pacemaker; E78.5 Hyperlipidemia, unspecified; E10.9 Type 1 diabetes mellitus without complications; I25.10 Atherosclerotic heart disease of native coronary artery without angina pectoris; Z79.899 Other long term (current) drug therapy; Z79.4 Long term (current) use of insulin; Z96.41 Presence of insulin pump (external) (internal); Z96.652 Presence of left artificial knee joint; Z88.8 Allergy status to other drugs, medicaments and biological substances; Z88.1 Allergy status to other antibiotic agents; W19.XXXA Unspecified fall, initial encounter; Y93.9 Activity, unspecified; Y92.009 Unspecified place in unspecified non-institutional (private) residence as the place of occurrence of the external cause; Y99.9 Unspecified external cause status
CPT/HCPCS: 01230; 36415; 36430; 70450; 71010; 74177; 80048; 80053; 81001; 82550; 82553; 82962; 83735; 84484; 85025; 85027; 85610; 85730; 86850; 86900; 86901; 86920; 93005; 93010; 94799; 96360; 96361; 99285; C1713; G8978-GP; G8979-GP; G8987-GO; G8988-GO; J0690; J1170; J1200; J1644; J2405; J2704; J3490; J7030; J7120; P9016

== ENCOUNTER 2018-06-05 17:13 | Emergency (ER) | payer MEDICARE, OTHER ==
[2018-06-05] MEDS ORDERED: TRANEXAMIC ACID INJ/PF 1,000 MG/10 ML SDV IV ONE (18:52)
--- NOTE | 2018-06-05 19:18 | ER Document Report ---
ED General - General Chief Complaint: Laceration Stated Complaint: L LEG INJURY Time Seen by Provider: 06/05/18 18:23 Notes: Patient is a 77-year-old female who presents with a skin avulsion to the left distal lower extremity. The patient reports that she sustained this skin avulsion after her dog apparently became scared, scratching the leg on accident. She reports the area has been profusely bleeding since that time despite applying direct pressure to the area. She also notes an associated dull , throbbing, constant discomfort to the area. Nothing improves or worsens her symptoms. She denies any history of similar injuries or bleeding events past. She does currently take clopidogrel due to a drug-eluting stent that was placed within the past 1 year. She has not seen her general doctor regarding today's concerns. She denies any additional injuries or concerns today. She reports that her tetanus immunization is up-to-date. TRAVEL OUTSIDE OF THE [place] IN LAST 30 DAYS: No - Related Data Allergies/Adverse Reactions: baclofen Allergy (Verified 06/05/18 17:23) levofloxacin [From Levaquin] Allergy (Verified 06/05/18 17:23) Sulfa (Sulfonamide Antibiotics) Allergy (Verified 06/05/18 17:23) sulfamethoxazole [From Bactrim] Allergy (Verified 06/05/18 17:23) trimethoprim [From Bactrim] Allergy (Verified 06/05/18 17:23) Past Medical History - General Information source: Patient - Social History Smoking Status: Never Smoker Frequency of alcohol use: None Drug Abuse: None Lives with: Family Family History: DM Patient has suicidal ideation: No Patient has homicidal ideation: No - Past Medical History Cardiac Medical History: Reports: Hx Atrial Fibrillation, Hx Hypercholesterolemia Endocrine Medical History: Reports: Hx Diabetes Mellitus Type 1 Renal/ Medical History: Denies: Hx Peritoneal Dialysis Psychiatric Medical History: Denies: Hx Depression Past Surgical History: Reports: Hx Cardiac Surgery - stent, Hx Hysterectomy, Hx Orthopedic Surgery - Left knee replacement - Immunizations Hx Diphtheria, Pertussis, Tetanus Vaccination: Yes Review of Systems - Review of Systems Notes: Constitutional: Negative for fever. Eyes: Negative for visual changes. ENT: Negative for facial injury Cardiovascular: Negative for chest injury. Respiratory: Negative for shortness of breath. Gastrointestinal: Negative for abdominal injury. Genitourinary: Negative for genital injury Musculoskeletal: Negative for back injury. Skin: Positive for laceration/abrasions. Neurological: Negative for head injury. Physical Exam - Vital signs Vitals: Temp Pulse Resp BP Pulse Ox 98.3 F 72 16 156/62 H 99 06/05/18 17:40 06/05/18 17:40 06/05/18 17:40 06/05/18 17:40 06/05/18 17:40 Interpretation: Hypertensive Notes: PHYSICAL EXAMINATION: GENERAL: Well-appearing, well-nourished and in no acute distress. HEAD: Atraumatic, normocephalic. EYES: Pupils equal round and reactive to light, extraocular movements intact, sclera anicteric, conjunctiva are normal. ENT: nares patent, oropharynx clear without exudates. Moist mucous membranes. NECK: Normal range of motion, supple without lymphadenopathy LUNGS: Breath sounds clear to auscultation bilaterally and equal. No wheezes rales or rhonchi. HEART: Regular rate and rhythm without murmurs ABDOMEN: Soft, nontender, normoactive bowel sounds. No guarding, no rebound. No masses appreciated. EXTREMITIES: Normal range of motion, no pitting or edema. No cyanosis. NEUROLOGICAL: No focal neurological deficits. Moves all extremities spontaneously and on command. PSYCH: Normal mood, normal affect. SKIN: Warm, Dry, normal turgor, there is a flap type skin avulsion to the left distal lower extremity approximately 2 x 2 cm in size with active venous bleeding Course - Re-evaluation Re-evalutation: 06/05/18 19:15 Patient presents with a left lower extremity skin tear after her dog apparently scratched her. The patient is very frail skin and there is an area of skin avulsion approximately 2 x 2 cm in size. Active bleeding at time of presentation. Patient has a retry direct pressure for prolonged periods of time at home without success. Topical TXA was applied and bleeding almost immediately discontinued. A dressing was then placed and the wound continued to be hemostatic. Given that the patient had been bleeding for approximately 3 hours prior to arrival will obtain a CBC without differential to establish her current hemoglobin although her daughter at the bedside is clear to state that the patient has chronic anemia. The patient denies any symptoms to suggest symptomatic anemia. Her tetanus is already up to date. I have reviewed wound care instructions with the patient and her daughter at the bedside. I advised regular wound care and close follow-up with the primary care physician. 06/05/18 20:09 Hemoglobin is 9.2 slightly below the patient's baseline per her report of 9.5- 10. This is not a transfusion threshold number and patient remains asymptomatic. At this time will discharge with return precautions and follow- up recommendations. Verbal discharge instructions given a the bedside and opportunity for questions given. Medication warnings reviewed. Patient is in agreement with this plan and has verbalized understanding of return precautions and the need for primary care follow-up in the next 24-72 hours. - Vital Signs Vital signs: Temp Pulse Resp BP Pulse Ox 98.5 F 70 18 144/57 H 97 06/05/18 20:45 06/05/18 20:45 06/05/18 20:45 06/05/18 20:45 06/05/18 20:45 - Laboratory Result Diagrams: 06/05/18 19:50 Laboratory results interpreted by me: 06/05/18 19:50 RBC 2.86 L Hgb 9.2 L Hct 27.0 L Discharge - Discharge Clinical Impression: On clopidogrel therapy Skin tear of left lower leg without complication Qualifiers: Encounter type: initial encounter Qualified Code(s): S81.812A - Laceration without foreign body, left lower leg, initial encounter Condition: Stable Disposition: HOME, SELF-CARE Additional Instructions: You were seen today for a tear on your skin. You should also return if you develop fevers with temperature greater than 101, persistent vomiting, have progressively worsening pain to the area, spreading redness, whitish discharge, progressive swelling of the area, or have any other symptoms that are concerning to you. Please apply topical antibiotic ointment such as bacitracin twice daily to the area and keep a bulky dressing to the area to prevent reinjury. Please follow-up with your primary doctor within the next 48-72 hours. Referrals: RON RAMOS MD [Primary Care Provider] - Follow up in 3-5 days
[2018-06-05 20:02] LABS: HEMOGLOBIN 9.2 g/dL (12.0-15.5); MEAN CORPUSCULAR HEMOGLOBIN 32.1 pg (27.0-33.4); MEAN CORPUSCULAR VOLUME 94 fl (80-97); PLATELET COUNT 193 10^3/uL (150-450); RED BLOOD COUNT 2.86 10^6/uL (3.72-5.28); RED CELL DISTRIBUTION WIDTH 13.5 % (11.5-14.0); WHITE BLOOD COUNT 7.1 10^3/uL (4.0-10.5)
[2018-06-05 20:47] VITALS: BP 144/57
== END 2018-06-05 20:46 | disposition home or self-care (01) ==
LOC: ER 17:13
DX: S81.812A Laceration without foreign body, left lower leg, initial encounter (principal); W54.1XXA Struck by dog, initial encounter; I48.91 Unspecified atrial fibrillation; E78.00 Pure hypercholesterolemia, unspecified; E10.9 Type 1 diabetes mellitus without complications; Z88.2 Allergy status to sulfonamides; Z88.3 Allergy status to other anti-infective agents; Z90.710 Acquired absence of both cervix and uterus; Z96.652 Presence of left artificial knee joint
CPT/HCPCS: 99283; 96374; 36415; 85027; J3490

== ENCOUNTER 2018-06-06 03:55 | Emergency (ER) | payer MEDICARE, OTHER ==
[2018-06-06] MEDS ORDERED: TRANEXAMIC ACID INJ/PF 1,000 MG/10 ML SDV IV ONE (04:31)
--- NOTE | 2018-06-06 04:54 | ER Document Report ---
ED Wound - General Chief Complaint: Wound Recheck Stated Complaint: WOUND BLEEDING Time Seen by Provider: 06/06/18 04:20 Notes: Patient is a 77-year-old female that comes from home with her daughter for chief complaint of wound bleeding. She was seen earlier today, was evaluated for a skin tear that occurred to her left lower anterior tibial area, she states she was scratched by jumping dog. She states that after she went home she bled onto a pillow that she had was elevating her right arm, they tried redressing with an Ezequiel wrap and she bled through this. She is on Plavix. TRAVEL OUTSIDE OF THE [place] IN LAST 30 DAYS: No - Related Data Allergies/Adverse Reactions: baclofen Allergy (Verified 06/05/18 17:23) levofloxacin [From Levaquin] Allergy (Verified 06/05/18 17:23) Sulfa (Sulfonamide Antibiotics) Allergy (Verified 06/05/18 17:23) sulfamethoxazole [From Bactrim] Allergy (Verified 06/05/18 17:23) trimethoprim [From Bactrim] Allergy (Verified 06/05/18 17:23) Past Medical History - General Information source: Patient, Relative - Social History Smoking Status: Never Smoker Frequency of alcohol use: None Drug Abuse: None Lives with: Family Family History: DM - Past Medical History Cardiac Medical History: Reports: Hx Atrial Fibrillation, Hx Hypercholesterolemia Endocrine Medical History: Reports: Hx Diabetes Mellitus Type 1 Renal/ Medical History: Denies: Hx Peritoneal Dialysis Psychiatric Medical History: Denies: Hx Depression Past Surgical History: Reports: Hx Cardiac Surgery - stent, Hx Hysterectomy, Hx Orthopedic Surgery - Left knee replacement - Immunizations Hx Diphtheria, Pertussis, Tetanus Vaccination: Yes Review of Systems - Review of Systems Constitutional: No symptoms reported EENT: No symptoms reported Cardiovascular: No symptoms reported Respiratory: No symptoms reported Gastrointestinal: No symptoms reported Genitourinary: No symptoms reported Female Genitourinary: No symptoms reported Musculoskeletal: See HPI Skin: See HPI Hematologic/Lymphatic: No symptoms reported Neurological/Psychological: No symptoms reported Physical Exam - Vital signs Vitals: Temp Pulse Resp BP Pulse Ox 98.2 F 70 12 116/47 L 96 06/06/18 04:03 06/06/18 04:03 06/06/18 04:03 06/06/18 04:03 06/06/18 04:03 - Notes Notes: GENERAL: Alert, interacts well. No acute distress. HEAD: Normocephalic, atraumatic. EYES: Pupils equal, round, and reactive to light. Extraocular movements intact. ENT: Oral mucosa moist, tongue midline. NECK: Full range of motion. Supple. Trachea midline. LUNGS: Clear to auscultation bilaterally, no wheezes, rales, or rhonchi. No respiratory distress. HEART: Regular rate and rhythm. No murmur ABDOMEN: Soft, non-tender. Non-distended. Bowel sounds present in all 4 quadrants. EXTREMITIES: Left lower anterior tibial area with a jagged skin tear with oozing blood, bruising superior to this, normal dorsalis pedis, normal capillary refill and sensation, normal lower extremity exam otherwise. BACK: no cervical, thoracic, lumbar midline tenderness. No saddle anesthesia, normal distal neurovascular exam. NEUROLOGICAL: Alert and oriented x3. Normal speech. [cranial nerves II through XII grossly intact]. PSYCH: Normal affect, normal mood. SKIN: Warm, dry, normal turgor. No rashes or lesions noted. Course - Re-evaluation Re-evalutation: Wound undressed, continuously oozing unfortunately. Patient did bleed through the entire dressing from earlier. This was removed, area cleansed, Xeroform placed, TXA was placed over the Xeroform, quick clot was placed over the Xeroform, TXA was placed over the quick clot, 4x4s placed over this, cling wrap placed. This was monitored for about 40 minutes. No additional dripping at the bottom like previously. No soaking through the bandage. Patient was ambulated and did not have any bleeding through the bandage. Coban was placed to secure. Patient states she will be seen in close follow-up with her primary care for redressing. Discussed return precautions, patient and daughter at bedside state understanding and agreement. - Vital Signs Vital signs: Temp Pulse Resp BP Pulse Ox 98.2 F 70 12 116/47 L 96 06/06/18 04:03 06/06/18 04:03 06/06/18 04:03 06/06/18 04:03 06/06/18 04:03 Discharge - Discharge Clinical Impression: Skin tear of left lower leg without complication Qualifiers: Encounter type: subsequent encounter Qualified Code(s): S81.812D - Laceration without foreign body, left lower leg, subsequent encounter Condition: Stable Disposition: HOME, SELF-CARE Additional Instructions: Wound has been dressed with Xeroform and anticoagulation dressing. Xeroform needs to be removed in 2-3 days and new dressing needs to be applied. Please follow-up closely with her primary care provider for this. Return for any concerning symptoms including heavy bleeding, spreading redness, fever, severe pain, or any other concerning symptoms. Referrals: RON RAMOS MD [Primary Care Provider] - Follow up as needed
[2018-06-06 06:24] VITALS: BP 139/52
== END 2018-06-06 06:24 | disposition home or self-care (01) ==
LOC: ER 03:55
DX: S81.812A Laceration without foreign body, left lower leg, initial encounter (principal); W54.1XXA Struck by dog, initial encounter; E10.9 Type 1 diabetes mellitus without complications; Z79.02 Long term (current) use of antithrombotics/antiplatelets; Z88.1 Allergy status to other antibiotic agents; Z88.2 Allergy status to sulfonamides; Z88.8 Allergy status to other drugs, medicaments and biological substances; Z95.5 Presence of coronary angioplasty implant and graft
CPT/HCPCS: 99283; 96374; J3490

== ENCOUNTER 2019-04-17 16:31 | Emergency (ER) | payer MEDICARE, OTHER ==
--- NOTE | 2019-04-17 17:28 | ER Document Report ---
ED Medical Screen (RME) - General Chief Complaint: Fall Stated Complaint: FALL/LEFT LEG INJURY Time Seen by Provider: 04/17/19 17:26 Primary Care Provider: RON RAMOS MD [Primary Care Provider] - Follow up as needed Mode of Arrival: Wheelchair Information source: Patient Notes: 78-year-old female presented to ED for complaint of fall this morning at 1130. She lives alone and she fell she falls multiple times. She states that she had skin tears to the left lower leg so she put bandages on it. When her daughter got back from [place] she decided that she needs to come to be examined in the emergency room for these skin tears. Patient did put the dressing on at the time of the injury it is not bleeding at this time but she does have large skin tear to the left lower leg. The right leg has a lot of bruising. She states she has full range of motion of both feet ankles and legs it is just the bruising and skin tears that she is concerned about. She states she is not on any blood thinners. I have greeted and performed a rapid initial assessment of this patient. A comprehensive ED assessment and evaluation of the patient, analysis of test results and completion of medical decision making process will be conducted by an additional ED providers. Dictation of this chart was performed using voice recognition software; therefore, there may be some unintended grammatical errors. TRAVEL OUTSIDE OF THE [place] IN LAST 30 DAYS: No - Related Data Allergies/Adverse Reactions: baclofen Allergy (Verified 04/17/19 16:34) levofloxacin [From Levaquin] Allergy (Verified 04/17/19 16:34) Sulfa (Sulfonamide Antibiotics) Allergy (Verified 04/17/19 16:34) sulfamethoxazole [From Bactrim] Allergy (Verified 04/17/19 16:34) trimethoprim [From Bactrim] Allergy (Verified 04/17/19 16:34) Past Medical History - Social History Chew tobacco use (# tins/day): No Frequency of alcohol use: None Drug Abuse: None - Past Medical History Cardiac Medical History: Reports: Hx Atrial Fibrillation, Hx Hypercholesterolemia Endocrine Medical History: Reports: Hx Diabetes Mellitus Type 1 Renal/ Medical History: Denies: Hx Peritoneal Dialysis Psychiatric Medical History: Denies: Hx Depression Past Surgical History: Reports: Hx Cardiac Surgery - stent, Hx Hysterectomy, Hx Orthopedic Surgery - Left knee replacement - Immunizations Hx Diphtheria, Pertussis, Tetanus Vaccination: Yes Physical Exam - Vital signs Vitals: Temp Pulse Resp BP Pulse Ox 99.1 F 71 16 126/45 H 96 04/17/19 16:38 04/17/19 16:38 04/17/19 16:38 04/17/19 16:38 04/17/19 16:38 Course - Vital Signs Vital signs: Temp Pulse Resp BP Pulse Ox 99.1 F 71 16 126/45 H 96 04/17/19 16:38 04/17/19 16:38 04/17/19 16:38 04/17/19 16:38 04/17/19 16:38 Doctor's Discharge - Discharge Referrals: RON RAMOS MD [Primary Care Provider] - Follow up as needed
--- NOTE | 2019-04-17 22:07 | ER Document Report ---
ED Wound - General Chief Complaint: Fall Stated Complaint: FALL/LEFT LEG INJURY Time Seen by Provider: 04/17/19 17:26 Primary Care Provider: RON RAMOS MD [Primary Care Provider] - Follow up in 3-5 days Mode of Arrival: Wheelchair Notes: Patient is a 78-year-old female that comes emergency department for chief complaint of wound to the left lower extremity and a fall with bruising on her right leg. She states this happened at about 11 AM this morning, she states the whole was caught her left leg and caused a skin tear, she states she tripped and bumped her right leg on the ground from this. She denies falling otherwise and denies any other injuries. She is not on any blood thinners. She was alone but family is at bedside. She denies pain in either leg at this time, denies pain with walking. TRAVEL OUTSIDE OF THE [place] IN LAST 30 DAYS: No - Related Data Allergies/Adverse Reactions: baclofen Allergy (Verified 04/17/19 16:34) levofloxacin [From Levaquin] Allergy (Verified 04/17/19 16:34) Sulfa (Sulfonamide Antibiotics) Allergy (Verified 04/17/19 16:34) sulfamethoxazole [From Bactrim] Allergy (Verified 04/17/19 16:34) trimethoprim [From Bactrim] Allergy (Verified 04/17/19 16:34) Past Medical History - General Information source: Patient, Relative - Social History Smoking Status: Never Smoker Chew tobacco use (# tins/day): No Frequency of alcohol use: None Drug Abuse: None Lives with: Alone Family History: DM Patient has suicidal ideation: No Patient has homicidal ideation: No - Past Medical History Cardiac Medical History: Reports: Hx Atrial Fibrillation, Hx Hypercholesterolemia Endocrine Medical History: Reports: Hx Diabetes Mellitus Type 1 Renal/ Medical History: Denies: Hx Peritoneal Dialysis Psychiatric Medical History: Denies: Hx Depression Past Surgical History: Reports: Hx Cardiac Surgery - stent, Hx Hysterectomy, Hx Orthopedic Surgery - Left knee replacement - Immunizations Hx Diphtheria, Pertussis, Tetanus Vaccination: Yes Review of Systems - Review of Systems Constitutional: No symptoms reported EENT: No symptoms reported Cardiovascular: No symptoms reported Respiratory: No symptoms reported Gastrointestinal: No symptoms reported Genitourinary: No symptoms reported Female Genitourinary: No symptoms reported Musculoskeletal: See HPI Skin: See HPI Hematologic/Lymphatic: No symptoms reported Neurological/Psychological: No symptoms reported Physical Exam - Vital signs Vitals: Temp Pulse Resp BP Pulse Ox 99.1 F 71 16 126/45 H 96 04/17/19 16:38 04/17/19 16:38 04/17/19 16:38 04/17/19 16:38 04/17/19 16:38 - Notes Notes: GENERAL: Alert, interacts well. No acute distress. HEAD: Normocephalic, atraumatic. EYES: Pupils equal, round, and reactive to light. Extraocular movements intact. ENT: Oral mucosa moist, tongue midline. Oropharynx unremarkable. Airway patent. NECK: Full range of motion. Supple. Trachea midline. LUNGS: Clear to auscultation bilaterally, no wheezes, rales, or rhonchi. No respiratory distress. HEART: Regular rate and rhythm. No murmur ABDOMEN: Soft, non-tender. Non-distended. Bowel sounds present in all 4 quadrants. GENITOURINARY: Deferred EXTREMITIES: Bruising to the right mid lateral lower extremity but no open w ounds. No bony tenderness. Normal hip, knee, ankle exam bilaterally. Normal distal neurovascular exam bilaterally. On the left side distally and laterally there is a approximately 6 cm irregular skin tear. Adjacent to this is another small skin tear about 1 cm in length. No deep wounds. Unremarkable lower extremity exams otherwise. BACK: no cervical, thoracic, lumbar midline tenderness. No saddle anesthesia, normal distal neurovascular exam. Moves all extremities in full range of motion. NEUROLOGICAL: Alert and oriented x3. Normal speech. Cranial nerves II through XII grossly intact. PSYCH: Normal affect, normal mood. SKIN: Warm, dry, normal turgor. No rashes or lesions noted. Course - Re-evaluation Re-evalutation: Patient does have a lot of bruising over the right lateral mid leg, however the area does not appear to have bony tenderness. Patient declines x-ray when I offered this. She does have a large skin tear on the left side. Otherwise no signs of trauma, no other complaints. Area was cleaned thoroughly, dressed with Xeroform, I discussed wound care, follow-up, and return precautions with patient and family, they state satisfaction agreement. - Vital Signs Vital signs: Temp Pulse Resp BP Pulse Ox 98.1 F 69 16 169/91 H 98 04/17/19 23:00 04/17/19 23:00 04/17/19 23:00 04/17/19 23:00 04/17/19 23:00 Discharge - Discharge Clinical Impression: Skin tear, Contusion of skin Fall Qualifiers: Encounter type: initial encounter Qualified Code(s): W19.XXXA - Unspecified fall, initial encounter Condition: Stable Disposition: HOME, SELF-CARE Additional Instructions: Your evaluation shows skin tears and contusion. Keep the Xeroform (yellow) dressing on for the next 2 to 3 days, then remove and apply topical antibiotic and nonadhesive dressings. You can clean the area with soap and water, I recommend doing this daily and daily dressing changes (unless this becomes dirty in which case you should do more). Take Tylenol for pain if needed. Follow-up with primary care. Return if you worsen including developing or spreading redness, swelling, discolored discharge, fever/chills, pain, or any other concerning or worsening symptoms. Referrals: RON RAMOS MD [Primary Care Provider] - Follow up in 3-5 days
[2019-04-17 23:13] VITALS: BP 169/91
== END 2019-04-17 23:00 | disposition home or self-care (01) ==
LOC: ER 16:31
DX: S71.112A Laceration without foreign body, left thigh, initial encounter (principal); S70.11XA Contusion of right thigh, initial encounter; W19.XXXA Unspecified fall, initial encounter; I48.91 Unspecified atrial fibrillation; E78.00 Pure hypercholesterolemia, unspecified; E10.9 Type 1 diabetes mellitus without complications; Z90.710 Acquired absence of both cervix and uterus; Z96.652 Presence of left artificial knee joint; Z88.2 Allergy status to sulfonamides; Z88.3 Allergy status to other anti-infective agents
CPT/HCPCS: 99283

== ENCOUNTER 2020-02-10 21:04 | Emergency (ER) | payer MEDICARE, OTHER ==
--- NOTE | 2020-02-11 00:20 | ER Document Report ---
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 Patient states that she fell forward and landed on her sternum. She sustained a skin avulsion to her anterior right gill and small abrasions to her right pinky and left palm. Patient did not hit her head, remembers everything that happened, and is not on blood thinners. Patient states it was a mechanical fall. No dizziness/lightheadedness, no palpitations prior to. No other complaints. TRAVEL OUTSIDE OF THE [place] IN LAST 30 DAYS: No - Related data Allergies/Adverse Reactions: baclofen Allergy (Verified 04/17/19 16:34) levofloxacin [From Levaquin] Allergy (Verified 04/17/19 16:34) Sulfa (Sulfonamide Antibiotics) Allergy (Verified 04/17/19 16:34) sulfamethoxazole [From Bactrim] Allergy (Verified 04/17/19 16:34) trimethoprim [From Bactrim] Allergy (Verified 04/17/19 16:34) Past Medical History - Social History Smoking Status: Unknown if Ever Smoked Chew tobacco use (# tins/day): No Frequency of alcohol use: None Drug Abuse: None Family History: DM Patient has suicidal ideation: No Patient has homicidal ideation: No - Past Medical History Cardiac Medical History: Reports: Hx Atrial Fibrillation, Hx Hypercholesterolemia Endocrine Medical History: Reports: Hx Diabetes Mellitus Type 1 Renal/ Medical History: Denies: Hx Peritoneal Dialysis Psychiatric Medical History: Denies: Hx Depression Past Surgical History: Reports: Hx Cardiac Surgery - stent, Hx Hysterectomy, Hx Orthopedic Surgery - Left knee replacement - Immunizations Hx Diphtheria, Pertussis, Tetanus Vaccination: Yes Review of Systems - Review of Systems Constitutional: See HPI EENT: No symptoms reported Cardiovascular: See HPI Respiratory: See HPI Gastrointestinal: No symptoms reported Genitourinary: No symptoms reported Female Genitourinary: No symptoms reported Musculoskeletal: See HPI Skin: No symptoms reported Hematologic/Lymphatic: No symptoms reported Neurological/Psychological: See HPI Physical Exam - Vital signs Vitals: Pulse Ox 100 02/10/20 21:27 - Notes Notes: PHYSICAL EXAMINATION: Reviewed vital signs and charting by RN GENERAL: Alert, interacts well. No acute distress. HEAD: Normocephalic, atraumatic. EYES: Pupils equal and round. Extraocular movements intact. ENT: Oral mucosa moist, tongue midline. NECK: Full range of motion. Trachea midline. LUNGS: Clear to auscultation bilaterally, no wheezes, rales, or rhonchi. No respiratory distress. CHEST: Tenderness to palpation over the sternum, no bruising HEART: Regular rate and rhythm. No murmur ABDOMEN: soft, non-tender. No distention. Bowel sounds present EXTREMITIES: Moves all 4 extremities spontaneously. No edema, No cyanosis. PSYCH: Normal affect, normal mood. SKIN: Increased turgor secondary to aging, large skin avulsion on the right ant erior gill V-shaped with a flap of the epidermis, significant ecchymosis over her left leg and bilateral hands, 2 small abrasions on her right pinky and one small abrasion on her left thenar eminence Course - Re-evaluation Re-evalutation: 02/11/20 00:27 Well-appearing in no acute distress. Patient is not on anticoagulation, did not hit her head, and remembers the entire mechanical fall. As such imaging will be deferred. I am going to get a chest x-ray to ensure she does not have a fractured sternum or pneumothorax. The wound will be dressed with Xeroform. EKG showed atrial paced complexes with a rate of 71, normal axis, no evidence of STEMI or ST depressions, no T wave inversions. 02/11/20 01:34 Chest x-ray did not show any evidence of bony thorax fracture to include the sternum or any ribs. No evidence of pneumothorax. Patient at this point is safe to discharge home and her wounds were dressed. She is stable for discharge. 02/11/20 01:39 - Vital Signs Vital signs: Temp Pulse Resp BP Pulse Ox 98.7 F 69 19 181/71 H 100 02/10/20 21:30 02/10/20 21:36 02/11/20 00:00 02/10/20 23:01 02/11/20 00:00 - Laboratory Laboratory results interpreted by me: 02/10/20 21:20 POC Glucose 268 H Discharge - Discharge Clinical Impression: Skin avulsion, Chest wall pain Fall Qualifiers: Encounter type: initial encounter Qualified Code(s): W19.XXXA - Unspecified fall, initial encounter Condition: Good Disposition: HOME, SELF-CARE Additional Instructions: You were seen in the emergency department today for a fall. Because he did not hit your head and it was a mechanical fall we did not need to do a CT of your head. The x-ray of your chest was normal and there was no evidence of a broken sternum or any broken ribs. We have dressed your wounds with a special bandage material that will help heal. Please follow-up with your primary doctor in the next 24 to 48 hours for dressing care. Please return to the emergency department if you start developing confusion, fevers, weakness in your legs, worsening redness around your injuries, or you have any other concerning symptoms. Referrals: RON RAMOS MD [Primary Care Provider] - Follow up tomorrow
--- NOTE | 2020-02-11 01:30 | RADIOLOGY REPORT (SQ) ---
EXAM DESCRIPTION: XR CHEST 1 VIEW COMPLETED DATE/TME: 02/11/2020 00:11 CLINICAL HISTORY: 79 years Female, Fall, sternal pain COMPARISON: 11/26/16 NUMBER OF VIEWS/TECHNIQUE: 1/AP FINDINGS: Adequate lung volume, clear parenchyma, normal cardiac silhouette, and intact bony thorax.Atherosclerotic vascular disease. Left cardiac stimulator with leads. Advanced coronary arterial calcification/stent. Atherosclerotic vascular disease. IMPRESSION: No acute cardiopulmonary findings.
[2020-02-11 02:19] VITALS: BP 159/77
--- NOTE | 2020-02-11 10:02 | EKG REPORT ---
SEVERITY:- ABNORMAL ECG - ATRIAL-PACED COMPLEXES : Confirmed by: Ale Ladd 11-Feb-2020 10:02:28
== END 2020-02-11 02:19 | disposition home or self-care (01) ==
LOC: ER 21:04
DX: S60.416A Abrasion of right little finger, initial encounter (principal); S60.512A Abrasion of left hand, initial encounter; R07.89 Other chest pain; M25.561 Pain in right knee; W19.XXXA Unspecified fall, initial encounter; Z88.2 Allergy status to sulfonamides; Z88.8 Allergy status to other drugs, medicaments and biological substances; E10.9 Type 1 diabetes mellitus without complications
CPT/HCPCS: 71045; 82962; 93005; 93010; 99284

== ENCOUNTER 2020-03-17 16:25 | Emergency (ER) | payer MEDICARE, OTHER ==
--- NOTE | 2020-03-17 16:45 | ER Document Report ---
ED Medical Screen (RME) - General Chief Complaint: Fall Stated Complaint: FALL Time Seen by Provider: 03/17/20 16:42 Primary Care Provider: RON RAMOS MD [Primary Care Provider] - Follow up as needed Mode of Arrival: Wheelchair Information source: Patient Notes: 79-year-old female presented to ED for a fall fall with facial injuries, left arm and hand injuries very deep lacerations to the hand, right knee injury, planing of severe pain at this time. I have greeted and performed a rapid initial assessment of this patient. A comprehensive ED assessment and evaluation of the patient, analysis of test results and completion of medical decision making process will be conducted by an additional ED providers. TRAVEL OUTSIDE OF THE [place] IN LAST 30 DAYS: No - Related Data Allergies/Adverse Reactions: baclofen Allergy (Verified 04/17/19 16:34) levofloxacin [From Levaquin] Allergy (Verified 04/17/19 16:34) Sulfa (Sulfonamide Antibiotics) Allergy (Verified 04/17/19 16:34) sulfamethoxazole [From Bactrim] Allergy (Verified 04/17/19 16:34) trimethoprim [From Bactrim] Allergy (Verified 04/17/19 16:34) Past Medical History - Past Medical History Cardiac Medical History: Reports: Hx Atrial Fibrillation, Hx Hypercholesterolemia Endocrine Medical History: Reports: Hx Diabetes Mellitus Type 1 Renal/ Medical History: Denies: Hx Peritoneal Dialysis Psychiatric Medical History: Denies: Hx Depression Past Surgical History: Reports: Hx Cardiac Surgery - stent, Hx Hysterectomy, Hx Orthopedic Surgery - Left knee replacement - Immunizations Hx Diphtheria, Pertussis, Tetanus Vaccination: Yes Doctor's Discharge - Discharge Referrals: RON RAMOS MD [Primary Care Provider] - Follow up as needed
--- NOTE | 2020-03-17 17:35 | RADIOLOGY REPORT (SQ) ---
EXAM DESCRIPTION: FOREARM LEFT; HAND LEFT 3 VIEWS; WRIST LEFT 3 VIEWS COMPLETED DATE/TIME: 03/17/2020 4:07 pm REASON FOR STUDY: Full facial arm wrist pain lacerations injuries COMPARISON: None. NUMBER OF VIEWS: Views TECHNIQUE: Two radiographic images acquired of the left forearm, including elbow and wrist in at [address] one projection. AP, lateral and oblique views of the left hand and wrist. LIMITATIONS: None. FINDINGS: MINERALIZATION: Osteopenia. BONES: No acute fracture. No worrisome bone lesions. SOFT TISSUES: There is a laceration over the dorsal aspect of the distal ulna. No radiopaque foreign body. OTHER: No other significant finding. IMPRESSION: Laceration at the wrist. No radiopaque foreign body or underlying fracture. Moderate o steopenia. TECHNICAL DOCUMENTATION: JOB ID: [id number] 2010 [employer]- All Rights Reserved Reading location - IP/workstation name: [email or web address]
--- NOTE | 2020-03-17 17:35 | RADIOLOGY REPORT (SQ) ---
EXAM DESCRIPTION: FOREARM LEFT; HAND LEFT 3 VIEWS; WRIST LEFT 3 VIEWS COMPLETED DATE/TIME: 03/17/2020 4:07 pm REASON FOR STUDY: Full facial arm wrist pain lacerations injuries COMPARISON: None. NUMBER OF VIEWS: Views TECHNIQUE: Two radiographic images acquired of the left forearm, including elbow and wrist in at [facility] [address] one projection. AP, lateral and oblique views of the left hand and wrist. LIMITATIONS: None. FINDINGS: MINERALIZATION: Osteopenia. BONES: No acute fracture. No worrisome bone lesions. SOFT TISSUES: There is a laceration over the dorsal aspect of the distal ulna. No radiopaque foreign body. OTHER: No other significant finding. IMPRESSION: Laceration at the wrist. No radiopaque foreign body or underlying fracture. Moderate o steopenia. TECHNICAL DOCUMENTATION: JOB ID: [id number] 2010 [employer]- All Rights Reserved Reading location - IP/workstation name: [email or web address]
--- NOTE | 2020-03-17 17:35 | RADIOLOGY REPORT (SQ) ---
EXAM DESCRIPTION: FOREARM LEFT; HAND LEFT 3 VIEWS; WRIST LEFT 3 VIEWS COMPLETED DATE/TIME: 03/17/2020 4:07 pm REASON FOR STUDY: Full facial arm wrist pain lacerations injuries COMPARISON: None. NUMBER OF VIEWS: Views TECHNIQUE: Two radiographic images acquired of the left forearm, including elbow and wrist in at [facility] one projection. AP, lateral and oblique views of the left hand and wrist. LIMITATIONS: None. FINDINGS: MINERALIZATION: Osteopenia. BONES: No acute fracture. No worrisome bone lesions. SOFT TISSUES: There is a laceration over the dorsal aspect of the distal ulna. No radiopaque foreign body. OTHER: No other significant finding. IMPRESSION: Laceration at the wrist. No radiopaque foreign body or underlying fracture. Moderate o steopenia. TECHNICAL DOCUMENTATION: JOB ID: [id number] 2010 [email or web address]- All Rights Reserved Reading location - IP/workstation name: [email or web address]
[2020-03-17] MEDS ORDERED: LIDOCAINE 1% INJ-PF (10 MG/ML) 30 ML SDV INJ ONE (17:42)
[2020-03-17] MEDS ORDERED: DIPH/PERTUSS(ACELL)/TETANUS VAC/PF 0.5 ML SYR (>=10YO) IM ONE (17:42)
--- NOTE | 2020-03-17 17:42 | RADIOLOGY REPORT (SQ) ---
EXAM DESCRIPTION: CT HEAD WITHOUT IMAGES COMPLETED DATE/TIME: 03/17/2020 4:15 pm REASON FOR STUDY: head injury. Full facial, arm, wrist, laceration, injuries. COMPARISON: None. TECHNIQUE: Axial images acquired through the brain without intravenous contrast. Images reviewed wi th bone, brain and subdural windows. Additional sagittal and coronal reconstructions were generated. Images stored on PACS. All CT scanners at this facility use dose modulation, iterative reconstruction, and/or weight based d osing when appropriate to reduce radiation dose to as low as reasonably achievable (ALARA). [facility]: Dose Right [facility]: CareDose [facility]: Dose Right [facility]: Teradose 4D [facility]: [employer] RADIATION DOSE: mGy. LIMITATIONS: None. FINDINGS: VENTRICLES: Normal size and contour. CEREBRUM: No masses. No hemorrhage. No midline shift. No evidence for acute infarction. Normal gra y/white matter differentiation. No areas of low density in the white matter. CEREBELLUM: No masses. No hemorrhage. No alteration of density. No evidence for acute infarction. EXTRAAXIAL SPACES: No fluid collections. No masses. ORBITS AND GLOBE: No intra- or extraconal masses. Normal contour of globe without masses. CALVARIUM: No fracture. PARANASAL SINUSES: No fluid or mucosal thickening. SOFT TISSUES: No mass or hematoma. OTHER: No other significant finding. IMPRESSION: No acute intracranial hemorrhage, mass, or evidence of acute territorial infarct. EVIDENCE OF ACUTE STROKE: NO. COMMENT: Quality ID # 436: Final reports with documentation of one or more dose reduction techniques (e.g., Automated exposure control, adjustment of the mA and/or kV according to patient size, use of iterative reconstruction technique) TECHNICAL DOCUMENTATION: JOB ID: [id number] 2010 [employer]- All Rights Reserved Reading location - IP/workstation name: [email or web address]
--- NOTE | 2020-03-17 17:43 | RADIOLOGY REPORT (SQ) ---
EXAM DESCRIPTION: CT CERVICAL SPINE WITHOUT IMAGES COMPLETED DATE/TIME: 03/17/2020 4:15 pm REASON FOR STUDY: injury COMPARISON: None. TECHNIQUE: Axial images acquired through the cervical spine without intravenous contrast. Images re viewed with lung, soft tissue and bone windows. Reconstructed coronal and sagittal MPR images review ed. Images stored on PACS. All CT scanners at this facility use dose modulation, iterative reconstruction, and/or weight based d osing when appropriate to reduce radiation dose to as low as reasonably achievable (ALARA). [facility]: Dose Right [facility]: CareDose [facility]: Dose Right [facility]: Teradose 4D [facility]: Smart [employer] RADIATION DOSE: CT Rad equipment meets quality standard of care and radiation dose reduction techniq ues were employed. CTDIvol: 11.3 - 53.2 mGy. DLP: 1622 mGy-cm. mGy. LIMITATIONS: None. FINDINGS: ALIGNMENT: Straightening of the normal cervical lordosis likely on the basis of chronic de generative change. No significant spondylolisthesis. MINERALIZATION: Normal. VERTEBRAL BODIES: No fractures or dislocation. DISCS: Mild degenerative disc disease with loss of intervertebral disc height most prominent at C5-C6 . Small posterior disc bulge with disc osteophyte complex at this level. No significant spinal tavon l stenosis. FACETS, LATERAL MASSES, POSTERIOR ELEMENTS: No fractures. No dislocation. No acute findings. Uncov ertebral spurring and facet arthropathy at C5-C6 contributes to moderate bilateral neural foraminal s tenosis. HARDWARE: None in the spine. VISUALIZED RIBS: No fractures. LUNG APICES AND SOFT TISSUES: No significant or acute findings. OTHER: No other significant finding. IMPRESSION: 1. No acute fracture or dislocation of the cervical spine. 2. Mild degenerative disc disease, spondylosis, and facet arthropathy most prominent at C5-C6. TECHNICAL DOCUMENTATION: JOB ID: [id number] Quality ID # [id number]: Final reports with documentation of one or more dose reduction techniques (e.g., Au tomated exposure control, adjustment of the mA and/or kV according to patient size, use of iterative reconstruction technique) 2010 [employer]- All Rights Reserved Reading location - IP/workstation name: [email or web address]
--- NOTE | 2020-03-17 17:44 | RADIOLOGY REPORT (SQ) ---
EXAM DESCRIPTION: CT FACIAL AREA WITHOUT IMAGES COMPLETED DATE/TIME: 03/17/2020 4:15 pm REASON FOR STUDY: Full facial arm wrist pain lacerations injuries COMPARISON: None. TECHNIQUE: Noncontrasted images through the facial bones and orbits windowed for bone and soft tissu e. Additional coronal and sagittal reconstructed images reviewed. All images stored on PACS. All CT scanners at this facility use dose modulation, iterative reconstruction, and/or weight based d osing when appropriate to reduce radiation dose to as low as reasonably achievable (ALARA). [facility]: Dose Right [facility]: CareDose [facility]: Dose Right [facility]: Teradose 4D [facility]: [employer] RADIATION DOSE: mGy. LIMITATIONS: None. FINDINGS: FACIAL BONES: No fracture or bone lesion. ORBITS: Intact. No fracture. Symmetric intact globes and retroorbital soft tissues. PARANASAL SINUSES: Clear. No significant mucosal thickening, mass or fluid. No nasal polyps. Maxill shirlene sinus outlets are patent. SOFT TISSUES: No mass or edema. No radiopaque foreign body. INFERIOR BRAIN: Limited view. No acute findings. OTHER: No other significant finding. IMPRESSION: NO ACUTE FINDINGS. TECHNICAL DOCUMENTATION: JOB ID: [id number] Quality ID # [id number]: Final reports with documentation of one or more dose reduction techniques (e.g., Au tomated exposure control, adjustment of the mA and/or kV according to patient size, use of iterative reconstruction technique) 2010 [employer]- All Rights Reserved Reading location - IP/workstation name: [email or web address]
--- NOTE | 2020-03-17 17:46 | ER Document Report ---
ED General <RON DAWSON - Last Filed: 03/18/20 01:18> - General Mode of Arrival: Wheelchair TRAVEL OUTSIDE OF THE [place] IN LAST 30 DAYS: No - Related Data Home Medications: Aspirin, amiodarone, atorvastatin, ferrous sulfate, insulin <JAKE ELLINGTON - Last Filed: 03/18/20 03:26> - General Chief Complaint: Fall Stated Complaint: FALL Time Seen by Provider: 03/17/20 16:42 Primary Care Provider: RON RAMOS MD [Primary Care Provider] - Follow up as needed - HPI Notes: This is a 79-year-old female who presents to the emergency department for evaluation after a fall. She was walking a dog when it started to run. It pulled her to the ground. She struck her chin, lacerated her left knee, left wrist, left fingers. No loss of consciousness. No neck or back pain. She is unsure as to when her last tetanus shot was. She did not lose consciousness. She really only has minor pain in her right jaw. (JAKE ELLINGTON) - Related Data Allergies/Adverse Reactions: baclofen Allergy (Verified 04/17/19 16:34) levofloxacin [From Levaquin] Allergy (Verified 04/17/19 16:34) Sulfa (Sulfonamide Antibiotics) Allergy (Verified 04/17/19 16:34) sulfamethoxazole [From Bactrim] Allergy (Verified 04/17/19 16:34) trimethoprim [From Bactrim] Allergy (Verified 04/17/19 16:34) Past Medical History - General Information source: Patient - Social History Smoking Status: Never Smoker Family History: Reviewed & Not Pertinent, DM - Past Medical History Cardiac Medical History: Reports: Hx Atrial Fibrillation, Hx Coronary Artery Disease, Hx Hypercholesterolemia Endocrine Medical History: Reports: Hx Diabetes Mellitus Type 1 Renal/ Medical History: Denies: Hx Peritoneal Dialysis Psychiatric Medical History: Denies: Hx Depression Past Surgical History: Reports: Hx Cardiac Surgery - stent, Hx Hysterectomy, Hx Orthopedic Surgery - Left knee replacement - Immunizations Hx Diphtheria, Pertussis, Tetanus Vaccination: Yes <JAKE ELLINGTON - Last Filed: 03/18/20 03:26> Review of Systems - Review of Systems Musculoskeletal: See HPI Skin: See HPI -: Yes All other systems reviewed and negative <JAKE ELLINGTON - Last Filed: 03/18/20 03:26> Physical Exam <JAKE ELLINGTON - Last Filed: 03/18/20 03:26> - Vital signs Vitals: Temp Pulse Resp BP Pulse Ox 98.2 F 70 18 196/63 H 100 03/17/20 16:47 03/17/20 16:47 03/17/20 16:47 03/17/20 16:47 03/17/20 16:47 - Notes Notes: Vital signs reviewed, please refer to chart. Head is normocephalic, atraumatic. Pupils equal round, reactive to light. Nares are patent without septal hematoma. No facial bone tenderness, no orbital stepoff. Oral mucosa is moist. Uvula is midline. 2 cm linear laceration to the left aspect of the inferior chin. Examination of the spine yields no midline tenderness or step-off. No p araspinal musculature tenderness is appreciated. Heart is regular rate and rhythm. Lungs are clear to auscultation bilaterally. Chest wall excursion is equal, chest is nontender. Abdomen is soft, nontender, normoactive bowel sounds throughout. Extremities without cyanosis, clubbing. Posterior calves are nontender. Peripheral pulses are equal. Skin is warm and dry. Patient with 2 linear 4 cm skin tears to the dorsum of the left wrist. She has a 3 cm laceration to the dorsum of the PIP on the ring finger, linear in nature, and a stellate laceration over the PIP of the middle finger on the left. Patient has full range of motion of all fingers and thumb, neurovascularly intact. She has a 6 cm U-shaped skin tear noted to the right knee. Patient is awake, alert, oriented x3. Cranial nerves II - XII are grossly intact without focal neurological deficits. Strength is plus 5 out of 5 bilateral upper and lower extremities. Sensation is intact. Reflexes symmetrical. Intact finger-nose- finger, rapid alternating movements, [id number]. (JAKE ELLINGTON) Course - Diagnostic Test Radiology reviewed: Image reviewed, Reports reviewed <JAKE ELLINGTON - Last Filed: 03/18/20 03:26> - Re-evaluation Re-evalutation: 03/17/20 17:51 Patient presents to the emergency department for evaluation after a fall. She sustained multiple lacerations. Most of these wounds are skin tears, but laceration will be cleansed and closed using sutures of the face as well as the middle and ring fingers on the left hand. We will attempt to Dermabond small areas of the skin tear on the right knee. Awaiting official radiology reads, but preliminarily negative per my read. Tetanus will be updated. Patient is stable. 03/17/20 21:41 Wounds were cleansed and closed by physician lead dental assistant Ron Dawson, please see he was separate procedure note. Patient tolerated this well. Wounds were cleansed and dressed, AlumaFoam splint was placed over the left middle finger to protect there is more significant laceration. We will send her home on Keflex. She is to have sutures removed in 7 days. Follow-up with primary care next week, return to the ED with worsening or new concerning symptoms of any sort. (JAKE ELLINGTON) - Vital Signs Vital signs: Temp Pulse Resp BP Pulse Ox 98.3 F 68 20 180/64 H 99 03/17/20 22:21 03/17/20 22:21 03/17/20 22:21 03/17/20 22:21 03/17/20 22:21 - Diagnostic Test Radiology results interpreted by me: 03/17/20 17:[address] 03/17/20 16:42 IMPRESSION: NO ACUTE FINDINGS. Forearm X-Ray 03/17/20 16:42 IMPRESSION: Laceration at the wrist. No radiopaque foreign body or underlying fracture. Moderate osteopenia. Hand X-Ray 03/17/20 16:42 IMPRESSION: Laceration at the wrist. No radiopaque foreign body or underlying fracture. Moderate osteopenia. Wrist X-Ray 03/17/20 16:42 IMPRESSION: Laceration at the wrist. No radiopaque foreign body or underlying fracture. Moderate osteopenia. Head CT 03/17/20 17:00 IMPRESSION: No acute intracranial hemorrhage, mass, or evidence of acute territorial infarct. EVIDENCE OF ACUTE STROKE: NO. Cervical Spine CT 03/17/20 17:01 IMPRESSION: 1. No acute fracture or dislocation of the cervical spine. 2. Mild degenerative disc disease, spondylosis, and facet arthropathy most prominent at C5-C6. (JAKE ELLINGTON) Procedures - Laceration/Wound Repair Left Arm Time completed: 20:59 Wound's Depth, Shape: Superficial, Other - Skin tear patient has an area approximately 3 cm x 4 cm of a skin tear superficial with the area still covered with moderate amount of skin. I cleaned the area with Hibiclens and dried it w ith sterile 4 x 4's I then applied approximately 7/1/4 inch Steri-Strips to pull the wound margins and skin together. I got good approximation with the entire skin tear and then applied Dermabond to the area over the Steri-Strips. This gave patient good protection and she tolerated this treatment very well. Laceration pre-procedure: Sterile drapes applied, Shur-Clens applied Volume Anesthetic (mLs): 0 Wound explored: Clean Irrigated w/ Saline (mLs): 250 Wound Debrided: Moderate Wound Repaired With: Steri-strips, Dermabond Layer Closure?: No Post-procedure NV exam normal: Yes Complications: No Face Time completed: 21:03 Wound length (cm): 4 Wound's Depth, Shape: Into muscle, Flap Laceration pre-procedure: Sterile PPE donned, Sterile drapes applied, Shur-Clens applied Anesthetic type: 1% Lidocaine Volume Anesthetic (mLs): 5 Wound explored: Clean - Be happy area will pop she what I told her stay for weight and use possible Z bar we can use possible over the very first Saturday Irrigated w/ Saline (mLs): 250 Wound Debrided: Moderate Wound Repaired With: Sutures Suture Size/Type: 5:0, Prolene Number of Sutures: 5 Layer Closure?: No Post-procedure wound care: Sterile dressing applied Post-procedure NV exam normal: Yes Complications: No Left 3rd digit Time completed: 21:08 Wound length (cm): 4 - This is a multi-flap on the middle knuckle area. Wound's Depth, Shape: Into muscle, Flap, Stellate, Contused tissue Laceration pre-procedure: Sterile PPE donned, Sterile drapes applied, Shur-Clens applied Anesthetic type: 1% Lidocaine Volume Anesthetic (mLs): 4 Wound explored: Clean Irrigated w/ Saline (mLs): 250 Wound Debrided: Extensive Wound Repaired With: Sutures, Other Suture Size/Type: 4:0, Prolene - Patient's wound was multi-flap on the knuckle of the left middle finger. Patient had full range of motion with the finger in flexion extension and good strength against resistance. The knuckle itself had moderate amount of mangled tissue that had to be removed and then approximated again. Number of Sutures: 0 Post-procedure wound care: Sterile dressing applied, Splint applied Post-procedure NV exam normal: Yes Complications: No Left 4th digit Time completed: 21:11 Wound length (cm): 3 Wound's Depth, Shape: Into muscle, Irregular, Flap, Stellate Laceration pre-procedure: Sterile PPE donned, Sterile drapes applied, Shur-Clens applied Anesthetic type: 1% Lidocaine Volume Anesthetic (mLs): 5 Wound explored: Clean Irrigated w/ Saline (mLs): 250 Wound Debrided: Moderate Wound Repaired With: Sutures Suture Size/Type: 4:0 Number of Sutures: 6 Post-procedure wound care: Sterile dressing applied Post-procedure NV exam normal: Yes Complications: No <RON DAWSON - Last Filed: 03/18/20 01:18> - Laceration/Wound Repair Left Arm Notes: 03/17/20 21:01 Patient had a second skin tear on her right kneecap/patella. Patient most of her skin still attached is a very thin skin tear. I moisten the area with normal sterile saline and Hibiclens I allowed it to saturate the area and then I scrubbed it manually. I then used approximately 4 quarter inch Steri-Strips to also approximate and hold the skin in place. I then applied Dermabond over top of the Steri-Strips. This gave us a good seal around the wound itself. And keep the Steri-Strips in place. Patient tolerated this without any comp lications. (RON DAWSON) Face Notes: 03/17/20 21:05 Patient from her fall had a moderate amount of abrasion around the laceration itself. It did come together with some difficulty and the approximation hemostasis was noted to be very well. (RON DAWSON) Discharge <RON DAWSON - Last Filed: 03/18/20 01:18> <JAKE ELLINGTON - Last Filed: 03/18/20 03:26> - Discharge Clinical Impression: Skin tear right knee Laceration of chin Qualifiers: Encounter type: initial encounter Qualified Code(s): S01.81XA - Laceration without foreign body of other part of head, initial encounter Laceration of left middle finger Qualifiers: Encounter type: initial encounter Damage to nail status: unspecified Foreign body presence: without foreign body Qualified Code(s): S61.213A - Laceration without foreign body of left middle finger without damage to nail, initial encounter Laceration of left ring finger Qualifiers: Encounter type: initial encounter Damage to nail status: without damage Foreign body presence: without foreign body Qualified Code(s): S61.215A - Laceration without foreign body of left ring finger without damage to nail, initial encounter Tear of skin of left wrist Qualifiers: Encounter type: initial encounter Qualified Code(s): S61.512A - Laceration without foreign body of left wrist, initial encounter Condition: Stable Disposition: HOME, SELF-CARE Instructions: Antibiotic Ointment Protection ([facility]), Laceration Care ([facility]), Prophylactic Antibiotic ([facility]), Soap Cleansing ([facility]), Tetanus Immunization Given ([facility]) Additional Instructions: Keep wounds clean with soap and water. Avoid submerging lacerations. Have sutures removed in 7 days. Please take the Keflex as directed until it is gone. Tylenol or ibuprofen, with food, as needed for pain. If you develop visual changes, vomiting, increased pain, fevers, or any other new concerning symptoms, please return immediately to the emergency department for evaluation. Prescriptions: Cephalexin Monohydrate [Keflex 500 mg Capsule] 500 mg PO QID #20 capsule Referrals: RON RAMOS MD [Primary Care Provider] - Follow up as needed
[2020-03-17] MEDS ORDERED: CEPHALEXIN 500 MG CAPSULE PO ONE (20:38)
[2020-03-17 22:22] VITALS: BP 180/64
== END 2020-03-17 22:14 | disposition home or self-care (01) ==
LOC: ER 16:25
DX: S61.512A Laceration without foreign body of left wrist, initial encounter (principal); S61.215A Laceration without foreign body of left ring finger without damage to nail, initial encounter; S01.81XA Laceration without foreign body of other part of head, initial encounter; S61.213A Laceration without foreign body of left middle finger without damage to nail, initial encounter; W18.39XA Other fall on same level, initial encounter; Y93.9 Activity, unspecified; I48.91 Unspecified atrial fibrillation; E78.00 Pure hypercholesterolemia, unspecified; E10.9 Type 1 diabetes mellitus without complications; Z23 Encounter for immunization; Z88.3 Allergy status to other anti-infective agents; Z88.2 Allergy status to sulfonamides; Z90.710 Acquired absence of both cervix and uterus
CPT/HCPCS: 99284; 90471; 82962; 73090; 73130; 73110; 70450; 70486; 72125; 90715; 12004; 12013; A9270